=== PATIENT | male | born 1990 | race Caucasian/White ===

== ENCOUNTER 2022-12-27 20:09 | Emergency (ER) | payer MEDICAID, SELFPAY ==
[2022-12-27 20:25] VITALS: BP 129/79; PULSE 92; RESP 18; TEMP 36.9; O2SAT 97; BMI 39.2
--- NOTE | 2022-12-27 20:46 | CRLHL7_ITS ---
For Patients: As a result of the Century Cures Act, medical imaging exams and procedure reports are released immediately into your electronic medical record. You may view this report before your referring provider. If you have questions, please contact your health care provider. INDICATION: Stepped wrong, foot pain 4MT dorsal side, injury TECHNIQUE: Foot radiograph 3 views right COMPARISON: None FINDINGS: Bone: No acute fractures or aggressive bone lesions are identified. Two cannulated lag screws are present within the medial malleolus. Metallic plate ORIF of the distal fibula is seen. Two fractured intraosseous screws are noted in the distal tibiofibular articulation. Joint: The visualized hindfoot, midfoot, and forefoot joints are unremarkable in appearance. No significant ankle effusion is seen. Soft tissue: Unremarkable. No radiopaque foreign bodies are seen. IMPRESSION: 1. No acute osseous injuries or abnormalities are noted. Dictated by Mike Gamboa MD @ 12/27/2022 9:25:05 PM Dictated by: Mike Gamboa MD @ 12/27/2022 21:25:19 (Electronically Signed)
[2022-12-27] MEDS: IBUPROFEN 200 MG TABLET 600 MG PO (20:53)
[2022-12-27 21:42] VITALS: BP 133/82; PULSE 81; RESP 18; TEMP 36.9; O2SAT 98
--- NOTE | 2022-12-27 23:12 | ED_ITS ---
HPI - Extremity Injury (Lower) General Chief Complaint: Extremity Pain/Injury, Lower Stated Complaint: Right foot/ankle pain Time Seen by Provider: 12/27/22 20:11 Source: patient and family Mode of arrival: ambulatory History of Present Illness HPI Narrative: 32-year-old male otherwise healthy presents to the emergency department with pain in his right lateral mid/forefoot area near the base of the 4th proximal metatarsal. No trauma or injury. Pain has been present for about a week but worsened acutely today when he was playing soccer in flip-flops with his child. He says that he now cannot bear weight. He does have a prior history of a tib- fib fracture 9 years ago and underwent operative repair for this, no complications since. No history of blood clots. He has not taken any Tylenol or ibuprofen to help with his pain. He notes some slight discoloration and swelling to the foot as well. No fevers, no recent illness. No prior issues with the other foot. He typically wears work boots, no arch supports or other similar devices. No prior Ortho or Podiatry follow-up since that fracture many years ago. He states that his past medical history is benign, no major long-term health problems. Reports that his allergies are to penicillin and oxycodone. Denies prescription medications. Socially with no pertinent travel or unusual exposures. ROS is negative for other generalized, musculoskeletal, neurological or skin changes. Related Data Home Medications Medication Instructions Recorded Confirmed No Known Home Medications 12/27/22 12/27/22 Allergies Allergy/AdvReac Type Severity Reaction Status Date / Time acetaminophen [From Percocet] AdvReac Verified 12/27/22 20:29 oxycodone [From Percocet] AdvReac Verified 12/27/22 20:29 Penicillins AdvReac Verified 12/27/22 20:29 [facility] Medical History Ankle fracture ?S82.899A - Other fracture of unspecified lower leg, initial encounter for closed fracture (ICD-10) Social History Smoking Status: Current every day smoker What tobacco products do you use: cigarettes Smoking packs per day: 1 Smoking cigarettes per day: 20.0 Do you use any of these nicotine containing products: None How often do you have a drink containing alcohol: never AUDIT-C Alcohol total score: 0 Non-prescribed substance use: denies use Exam Const: Vital Signs, click to edit/add: Vital Signs - 24 hr 12/27/22 20:25 12/27/22 21:42 Temperature 98.4 F 98.4 F Pulse Rate [Left P ulse Oximeter] 92 81 Respiratory Rate 18 18 Blood Pressure [Le ft Upper Arm] 129/79 133/82 Pulse Oximetry 97 98 Oxygen Delivery Me thod Room Air Room Air Documenting provider has reviewed patient's vital signs: yes Common normals: no apparent distress General appearance: cooperative, comfortable and well kempt Other: Moderate insight HENMT: Common normals: normocephalic Head and scalp: normocephalic Mouth : oral and palatal mucosa normal Eye: General eye: normal appearance of both eyes Resp: Common normals: normal respiratory effort Effort & inspection: able to speak in complete sentences Cardio: Common normals: regular rate, regular rhythm and peripheral pulses 2+ throughout Rate: regular rate Rhythm: regular rhythm Peripheral pulses: pulses 2+ throughout Other: Normal DP and PT pulses bilaterally. Normal capillary refill, warmth of all parts of foot and toes. Extremity: Other: Normal flexion and extension of right ankle. He has limited eversion and surgical scars consistent with fixation. Pain is worsened by eversion. Inversion is somewhat limited but nonpainful. Normal range of motion in knee been in all the toes with no tenderness. The nails appear normal. There is minimal if any discoloration with a slight purple hue and minimal swelling around the cuboid area of the foot on the dorsal aspect of the right foot only. Psych: Appearance: well kempt Activity/motor behavior: appropriate eye contact Insight: fair Judgement: fair Skin: Common normals: no rashes or lesions noted General skin exam: no rashes or lesions noted Course Vital Signs Vital signs: Initial Vital Signs Temperature 98.4 F 12/27/22 20:25 Temperature Source Temporal Artery Scan 12/27/22 20:25 Pulse Rate 92 12/27/22 20:25 Respiratory Rate 18 12/27/22 20:25 Blood Pressure 129/79 12/27/22 20:25 Blood Pressure Mean 95 12/27/22 20:25 Blood Pressure Position Sitting 12/27/22 20:25 Pulse Oximetry 97 12/27/22 20:25 Oxygen Delivery Method Room Air 12/27/22 20:25 Vital Signs Temperature 98.4 F 12/27/22 20:25 Pulse Rate 92 12/27/22 20:25 Respiratory Rate 18 12/27/22 20:25 Blood Pressure 129/79 12/27/22 20:25 Pulse Oximetry 97 12/27/22 20:25 Oxygen Delivery Method Room Air 12/27/22 20:25 Temperature 98.4 F 12/27/22 21:42 Pulse Rate 81 12/27/22 21:42 Respiratory Rate 18 12/27/22 21:42 Blood Pressure 133/82 12/27/22 21:42 Pulse Oximetry 98 12/27/22 21:42 Oxygen Delivery Method Room Air 12/27/22 21:42 MDM - Extremity Injury (Lower) MDM Narrative Medical decision making narrative: X-ray recommended and performed. Ibuprofen given for pain control. Update: X-ray findings reviewed with family, all reassuring. Did let him know that x-ray would not reliably find a stress fracture. Symptoms are more likely consistent with cuboid syndrome. Patient is significantly overweight. Counseled on Tylenol and ibuprofen, he will wear supportive hard bottomed shoes and consider arch supports for his work boots. Crutches given until he feels like he can not bear weight. He will continue conservative management for the next 2-4 weeks. If symptoms are not improving after that time, he will make a follow-up appointment with his primary care provider to consider MRI or podiatry referral. Alarm symptoms reviewed and handout given. Imaging Data Foot x-ray: Attestation: I have reviewed the pertinent imaging results. My impression: Normal Radiologist's impression: IMPRESSION: 1. No acute osseous injuries or abnormalities are noted. Discharge Plan Discharge Clinical Impression: Cuboid syndrome of right foot Patient Disposition: Home w/ Parent or Adult Instructions: Arthralgia (ED) Additional Instructions: As we discussed, there are no signs of fracture on your x-ray. Your pain is most likely consistent with a common condition called cuboid syndrome of the foot. I do suspect that your prior ankle surgeries put you at a slightly higher risk of this. It is mainly in obesity related condition and is very common. It will flare up from time to time but ultimately will wax and wane. Wearing sturdy arch supports, supportive footwear helps markedly. Use Tylenol 1000 mg every 6 hours and or ibuprofen 600 mg every 6 hours for pain. Ice as needed. Your given crutches to help offload some of the pain. It is okay to return to work and all typical duties. If your symptoms are still very bothersome in 4 weeks, make a follow-up appointment with your primary care provider to discuss a Podiatry referral, physical therapy and or other interventions. Rarely, stress fractures may not be seen on x-ray and may need an MRI to diagnose if you are not improving. Activity Level: Activity as Tolerated Discharge Diet: Regular Prescriptions: No Action No Known Home Medications Follow Up/Referrals: Provider,Not a Local [Primary Care Provider] - Stand Alone Forms: [employer] Info Instructions
== END 2022-12-27 21:43 | disposition home or self-care (01) ==
PROVIDERS: Emergency Provider Family Medicine
DX: S92.214A Nondisplaced fracture of cuboid bone of right foot, initial encounter for closed fracture (principal); Y93.66 Activity, soccer
CPT/HCPCS: 73630; 99283; A9270

== ENCOUNTER 2024-01-26 16:17 | Emergency (ER) | payer MEDICAID, SELFPAY ==
[2024-01-26 16:19] VITALS: BP 124/80; PULSE 88; RESP 16; TEMP 37.3; O2SAT 96; BMI 38.4
--- NOTE | 2024-01-26 16:37 | CT_ITS ---
Patient: ALOK ZHONG Facility:?[facility] Patient ID:?[id number] Site Patient ID:?[id number] Site :?[id number] Study:?CT-Abdomen/Pelvis w/o-01/26/2024 4:49:37 PM Ordering Physician:Cordell Rhodes Final Report: INDICATION: Right flank pain. COMPARISON: None available. TECHNIQUE: CT of the abdomen and pelvis without intravenous contrast. Please note that all CT scans at this facility use dose modulation, iterative reconstruction, and/or weight-based dosing when appropriate to reduce radiation dose to as low as reasonably achievable. FINDINGS: The study is performed without intravenous contrast. This limits the sensitivity of the exam for the detection bowel pathology, focal lesions of the abdominopelvic viscera and vascular pathology including significant vascular stenosis, occlusion and dissection. ABDOMEN Liver: Diffuse hepatic steatosis. No intrahepatic biliary ductal dilatation. Gallbladder: Cholelithiasis. Normal common duct caliber. No pericholecystic inflammatory changes. Pancreas: Normal pancreatic attenuation. No focal lesion. Normal duct caliber. No peripancreatic inflammatory changes. Spleen: Normal splenic attenuation. No suspicious focal lesion. Adrenal Glands: Symmetrical adrenal glands. No focal lesion of significance. Kidneys: Normal bilateral renal attenuation. No suspicious focal lesion. 10 mm stone in the right renal pelvis. No obstructing nephrolith or dilatation of the upper urinary tracts. Gastrointestinal tract: Normal caliber, attenuation and wall thickness of the gastrointestinal tract. No inflammatory changes. Normal mesentery. Normal appendix. Vascular: Normal outer wall to outer wall abdominal aortic caliber. Patency and luminal caliber of the abdominopelvic arterial and venous vasculature cannot be assessed on this noncontrast study. Additional findings: No incidental adenopathy. No significant ascites, free fluid or pneumoperitoneum. PELVIS No bladder lesion is identified. No significant incidental findings related to the prostate and seminal vesicles. No abnormal free fluid. No incidental adenopathy. SKELETON AND BODY WALL No acute or suspicious incidental findings. LOWER THORAX Partially included lower thoracic wall, lungs, pleural spaces and mediastinum are otherwise without significant incidental findings. IMPRESSION: 1. 10 mm nonobstructing stone in the right renal pelvis. 2. Cholelithiasis without findings to indicate acute cholecystitis. 3. Diffuse hepatic steatosis. The study is performed without intravenous contrast. This limits the sensitivity of the exam for the detection bowel pathology, focal lesions of the abdominopelvic viscera and vascular pathology including significant vascular stenosis, occlusion and dissection. Please note that all CT scans at this facility use dose modulation, iterative reconstruction, and/or weight-based dosing when appropriate to reduce radiation dose to as low as reasonably achievable. Dictated by David Whitehead MD @ 01/26/2024 5:15:53 PM Signed by:?David Whitehead MD @01/26/2024 5:15:53 PM (Electronic Signature)
--- NOTE | 2024-01-26 16:40 | ED.GENADULT ---
HPI - General Adult General Chief complaint: Abdominal Pain Stated complaint: Lower abdominal/back pain, dark urine Time Seen by Provider: 01/26/24 16:25 History of Present Illness HPI narrative: Patient is a 34-year-old male who has had kidney stones in the past, 3 times over the last couple months he has had darkish urine and some flank pain that then resolved. Starting yesterday to today he had brown urine dark urine and right-sided flank pain radiating to his right testicle. He has had no fever, he has had no chills, the patient has had no chest pain or breathing problem. Patient also reports a cyst-like structure under scrotal area in the perineum that is ruptured and had a little bit of bleeding in purulence now it seems less large. Denies specifically flank pain although has had some discomfort in his back this seems to radiate around his right testicle as mention. No testicular pain to palpation Related Data Allergies Allergy/AdvReac Type Severity Reaction Status Date / Time acetaminophen [From Percocet] AdvReac Verified 12/27/22 20:29 oxycodone [From Percocet] AdvReac Verified 12/27/22 20:29 Penicillins AdvReac Verified 12/27/22 20:29 Review of Systems Status of ROS: Reports: 6 or more systems reviewed and unremarkable except as noted in History and below [facility] Medical History Ankle fracture ?S82.899A - Other fracture of unspecified lower leg, initial encounter for closed fracture (ICD-10) Social History Smoking Status: Current every day smoker What tobacco products do you use: cigarettes Smoking packs per day: 1 Smoking cigarettes per day: 20.0 Do you use any of these nicotine containing products: None How often do you have a drink containing alcohol: never AUDIT-C Alcohol total score: 0 Non-prescribed substance use: denies use service: No Exam Narrative: Exam Narrative: Objective: Patient has temp of 99.1?, O2 sat is excellent 96% Patient has got elevated BMI HEENT is unremarkable Pulse regular Abdomen obese benign nontender Mild CVA tenderness, mild right lower quadrant tenderness, but no rebound or peritonitis He has got a small open wound under his left side of his scrotum and perineum that looks like it is open and there is no fluctuance it appears to have drained M there is a little bit a redness around that open lesion which is about 3 mm long. Extremities normal Neurologic nonfocal Const: Vital Signs, click to edit/add: Vital Signs - 24 hr 01/26/24 16:19 01/26/24 17:22 Temperature 99.1 F Pulse Rate [Pulse Oximeter] 88 Respiratory Rate 16 Blood Pressure [Ri ght Upper Arm] 124/80 Pulse Oximetry 96 96 Oxygen Delivery Me thod Room Air Course Vital Signs Vital signs: Initial Vital Signs Temperature 99.1 F 01/26/24 16:19 Temperature Source Temporal Artery Scan 01/26/24 16:19 Pulse Rate 88 01/26/24 16:19 Respiratory Rate 16 01/26/24 16:19 Blood Pressure 124/80 01/26/24 16:19 Blood Pressure Mean 94 01/26/24 16:19 Blood Pressure Position Sitting 01/26/24 16:19 Pulse Oximetry 96 01/26/24 16:19 Oxygen Delivery Method Room Air 01/26/24 16:19 Vital Signs Temperature 99.1 F 01/26/24 16:19 Pulse Rate 88 01/26/24 16:19 Respiratory Rate 16 01/26/24 16:19 Blood Pressure 124/80 01/26/24 16:19 Pulse Oximetry 96 01/26/24 16:19 Oxygen Delivery Method Room Air 01/26/24 16:19 Temperature 99.1 F 01/26/24 16:19 Pulse Rate 88 01/26/24 16:19 Respiratory Rate 16 01/26/24 16:19 Blood Pressure 124/80 01/26/24 16:19 Pulse Oximetry 96 01/26/24 17:22 Oxygen Delivery Method Room Air 01/26/24 16:19 Medications Administered Medications: Discontinued Medications Generic Name Dose Route Start Last Admin Trade Name Freq PRN Reason Stop Dose Admin Sodium Chloride 1,000 mls @ 6,000 mls/hr 01/26/24 16:45 01/26/24 18:00 0.9 % Sodium Chloride 1000 Ml IV 01/26/24 16:54 Infused .Q10M GLADIS Infusion Ketorolac Tromethamine 30 mg 01/26/24 16:36 01/26/24 17:17 Ketorolac 30 Mg/Ml Inj IVP 01/26/24 16:37 30 mg ONCE ONE Administration Trimethoprim/Sulfamethoxazole 1 tab 01/26/24 16:36 01/26/24 17:09 Sulfamethoxazole-Tmp Ds 800mg/160mg Tablet PO 01/26/24 16:37 1 tab ONCE ONE Administration Medical Decision Making MDM Narrative Medical decision making narrative: 34-year-old male with history kidney stones with right flank pain radiating to his right testicle and some darkish urine. Likely urolithiasis. And patient will get a CT scan IV fluid IV Toradol, will start some Septra DS for him for his scrotal cellulitic change an abscess. Will check his electrolytes and labs. Disposition pending findings on CT and laboratory still results and clinical status. Addendum 5:[address] scan shows a 10 mm nonobstructing stone in the right renal pelvis patient also has cholelithiasis without findings to indicate acute cholecystitis. He does not have right upper quadrant pain. He does describe some right-sided flank pain that radiates around to his groin consistent with a kidney stone. I think he intermittently gets a ball valve could type process going on with this large kidney stone. Will cover with antibiotics Septra DS 1 p.o. b.i.d. times 10 days, needs primary care follow-up in the next couple of days for reassessment and urologic referral. Also might need a general surgery referral regarding his cholelithiasis as needed. Patient will get Toradol and Septra DS for medications for home, I will write him a note for off work for 2 days, and he can recheck with the ER as needed. Lab Data Labs: Lab Results 01/26/24 01/26/24 Range/Units 17:00 17:40 WBC 10.20 (4.50-11.00) K/uL RBC 5.07 (4.30-5.90) m/uL Hgb 15.9 (13.5-17.5) gm/dL Hct 47.0 (37.0-53.0) % MCV 93 (80-100) fL MCH 31 (26-34) pg MCHC 34 (32-36) gm/dL RDW Coeff of [place] 12.1 (11.5-15.5) % Plt Count 278 (140-440) K/uL Neut % (Auto) 53.0 (42.0-72.0) % Lymph % (Auto) 37.0 (20-44) % [place] % (Auto) 5.7 (0.0-11.0) % Eos % (Auto) 3.3 (0.0-7.0) % Baso % (Auto) 0.8 (0.0-3.0) % Neut # (Auto) 5.41 (1.7-7.0) K/uL Lymph # (Auto) 3.77 H (0.90-2.90) K/uL [place] # (Auto) 0.60 (0.00-0.90) K/UL Eos # (Auto) 0.34 (0.00-0.50) K/uL Baso # (Auto) 0.08 (0.00-0.30) K/uL Abs Immat Gran (auto) 0.02 (0.00-0.30) K/uL Imm/Tot Granulo (auto) 0.2 % Sodium 139 (135-149) mmol/L Potassium 3.6 (3.6-5.1) mmol/L Chloride 109 (96-114) mmol/L Carbon Dioxide 26 (20-32) mmol/L Anion Gap 4 L (7-15) mEq/L BUN 14 (5-24) mg/dL Creatinine 1.1 (0.5-1.5) mg/dL Estimated Creat Clear 87.63 Estimated GFR 90 ml/min Glucose 112 (60-115) mg/dL Calcium 9.1 (8.4-10.6) mg/dL Total Bilirubin 0.8 (0.1-1.5) mg/dL Direct Bilirubin 0.1 (0.0-0.5) mg/dL AST 38 H (12-35) U/L ALT 51 H (4-50) U/L Alkaline Phosphatase 76 (40-150) U/L C-Reactive Protein 1.6 H (0.5-1.0) mg/dL Total Protein 7.9 (6.0-8.3) g/dL Albumin 4.5 (3.3-5.0) g/dL Amylase 68 (18-89) U/L Urine Color [place] A (Yellow) Urine Appearance Cloudy A (Clear) Urine pH 5.5 (5.0-8.5) Ur Specific [place] 1.025 (1.000-1.030) Urine Protein 3+ A (Negative) Urine Glucose (UA) Negative (Negative) Urine Ketones Trace A (Negative) Urine Blood 3+ A (Negative) Urine Nitrite Negative (Negative) Urine Bilirubin 1+ A (Negative) Urine Urobilinogen 2.0 A (0.2-1.0) Ur Leukocyte Esterase Negative (Negative) Urine RBC >100 A (0-2) Urine WBC 0-2 (0-5) Ur Squamous Epith Cells Few (None-Few) Amorphous Sediment Few A (None) Urine Bacteria None (None) Urine Yeast Moderate A (None) Discharge Plan Discharge Clinical Impression: Acute right flank pain, Skin infection, Kidney stone on right side, Cholelithiasis Patient Disposition: Home w/ Parent or Adult Condition: Improved Additional Instructions: Off work for 2 days no written, Septra and Toradol as disc prescribed. Needs primary care follow-up at our [facility] in the next few days. Will need urologic referral from primary care. Return as needed Your follow-up appointment is made for 01/[address] Noonan at 0945 am at the [facility]. Activity Level: Light activity Discharge Diet: Regular Follow Up/Referrals: Provider,Not a Local [Primary Care Provider] - Stand Alone Forms: [employer] Info Instructions
[2024-01-26 17:14] LABS: Basophils Absolute Auto 0.08 K/uL (0.00-0.30); Basophils Percent Auto 0.8 % (0.0-3.0); Eosinophils Absolute Auto 0.34 K/uL (0.00-0.50); Eosinophils Percent Auto 3.3 % (0.0-7.0); Hemoglobin* 15.9 gm/dL (13.5-17.5); Immature Granulocytes Abs Auto 0.02 K/uL (0.00-0.30); Immature Granulocytes Pct Auto 0.2 %; Lymphocytes Absolute Auto 3.77 K/uL (0.90-2.90); Mean Corpuscular HGB Conc 34 gm/dL (32-36); Mean Corpuscular Hemoglobin 31 pg (26-34); Mean Corpuscular Volume 93 fL (80-100); Monocytes Percent Auto 5.7 % (0.0-11.0); Neutrophils Absolute Auto 5.41 K/uL (1.7-7.0); Platelet Count* 278 K/uL (140-440); RDW Coefficient of Variation % 12.1 % (11.5-15.5); Red Blood Count 5.07 m/uL (4.30-5.90)
[2024-01-26] MEDS: KETOROLAC 30 MG/ML inj IVP (17:17)
[2024-01-26] MEDS: 0.9 % SODIUM CHLORIDE 1000 ml 1,000 ML 6000 ML IV (17:17)
[2024-01-26 17:19] LABS: Slide Review Reflex No
[2024-01-26 17:20] LABS: Albumin* 4.5 g/dL (3.3-5.0); Chloride* 109 mmol/L (96-114)
[2024-01-26 17:21] LABS: Potassium* 3.6 mmol/L (3.6-5.1); Sodium* 139 mmol/L (135-149)
[2024-01-26 17:22] VITALS: O2SAT 96
[2024-01-26 17:23] LABS: Alkaline Phosphatase* 76 U/L (40-150); Amylase* 68 U/L (18-89); Anion Gap 4 mEq/L (7-15); Aspartate Amino Transferase* 38 U/L (12-35); Bilirubin Direct* 0.1 mg/dL (0.0-0.5); Bilirubin Total* 0.8 mg/dL (0.1-1.5); Blood Urea Nitrogen* 14 mg/dL (5-24); Carbon Dioxide* 26 mmol/L (20-32); Creatinine* 1.1 mg/dL (0.5-1.5); Est. Creatinine Clearance* 87.63; Estimated Glomerular Filt Rate 90 ml/min; Total Protein* 7.9 g/dL (6.0-8.3)
[2024-01-26 17:24] LABS: Alanine Aminotransferase* 51 U/L (4-50); Calcium* 9.1 mg/dL (8.4-10.6); Glucose* 112 mg/dL (60-115)
[2024-01-26 17:26] LABS: C Reactive Protein* 1.6 mg/dL (0.5-1.0)
[2024-01-26 17:54] LABS: Appearance Urine Cloudy (Clear); Bilirubin Urine 1+ (Negative); Blood Urine 3+ (Negative); Color Urine Amber (Yellow); Glucose Urine Negative (Negative); Ketones Urine Trace (Negative); Leukocyte Esterase Urine Negative (Negative); Nitrite Urine Negative (Negative); Protein Urine 3+ (Negative); Specific Gravity Urine 1.025 (1.000-1.030); pH Urine 5.5 (5.0-8.5)
[2024-01-26 18:16] LABS: Amorphous Sediment Urine Few; RBC Urine >100 (0-2); Squamous Epithelial Cell Urine Few (None-Few); WBC Urine 0-2 (0-5)
== END 2024-01-26 18:02 | disposition home or self-care (01) ==
LOC: ED 17:06
PROVIDERS: Emergency Provider Family Medicine
DX: R10.9 Unspecified abdominal pain (principal); N20.0 Calculus of kidney; K80.20 Calculus of gallbladder without cholecystitis without obstruction; L08.9 Local infection of the skin and subcutaneous tissue, unspecified
CPT/HCPCS: 36415; 74176; 80048; 80076; 81001; 82150; 85025; 86140; 87086; 94761; 96374; 99284; A9270; J1885; J7030

== ENCOUNTER 2024-02-16 20:38 | Emergency (ER) | payer MEDICAID, SELFPAY ==
--- NOTE | 2024-02-16 20:41 | ED_ITS ---
HPI - General Adult General Time Seen by Provider: 20:41 Date Seen: 02/16/24 Chief complaint: Flank Pain Stated complaint: Kidney stone pain, vomiting, dry heaves Time Seen by Provider: 02/16/24 20:41 Source: patient, RN notes reviewed and old records reviewed Mode of arrival: ambulatory Limitations: no limitations History of Present Illness HPI narrative: Patient history of kidney stones presents with right flank pain, nausea vomiting this started earlier today. Pain wraps around to the low groin. Patient notes hematuria 4 days ago but none since. No dysuria. No fevers. Took Tylenol at home, but vomited. Does not have any nausea medicine at home. Has an appointment with Urology March 08. Related Data Home Medications ?Medication ?Instructions ?Recorded ?Confirmed sulfamethoxazole 800 1 tab PO BID 02/01/24 02/01/24 mg-trimethoprim 160 mg tablet Previous Rx's ?Medication ?Instructions ?Recorded hydromorphone 2 mg tablet 2 mg PO Q4H PRN pain #7 tabs 02/16/24 (Dilaudid) Allergies Allergy/AdvReac Type Severity Reaction Status Date / Time acetaminophen [From Percocet] AdvReac Verified 02/01/24 09:39 oxycodone [From Percocet] AdvReac Verified 02/01/24 09:39 Penicillins AdvReac Verified 02/01/24 09:39 [facility] Medical History (Updated 02/16/24 @ 22:16 by Dale Beauchamp MD) Ankle fracture ?S82.899A - Other fracture of unspecified lower leg, initial encounter for closed fracture (ICD-10) Surgical History (Updated 02/01/24 @ 11:07 by Chavo Noonan MD) History of surgery on lower extremity ?Z98.890 - Other specified postprocedural states (ICD-10) Social History (Updated 02/01/24 @ 10:30 by Elin Sams~[facility], [facility]) What is your current living situation?: I presently have a place to live Problems where you live: no known problems In the past 12 months, utilities in danger of being shut off: no In past 12 months, lack of transportation kept you from medical appts, meetings, work, or getting things needed for daily living: no In the past 12 mos, have been you worried that your food would run out before you had money to buy more?: never true In the past 12 mos, the food you bought just didn't last and you didn't have money to buy more?: never true Smoking Status: Current every day smoker What tobacco products do you use: cigarettes Smoking packs per day: 1 Smoking cigarettes per day: 20.0 Do you use any of these nicotine containing products: None How often do you have a drink containing alcohol: never AUDIT-C Alcohol total score: 0 Non-prescribed substance use: denies use How often does anyone, including family, friends and others, physically hurt you : never How often does anyone, including family, friends and others, insult or talk down to you: never How often does anyone, including family, friends and others, threaten you with harm: never How often does anyone, including family, friends and others, scream or curse at you: never Little interest or pleasure in doing things: nearly every day Feeling down, depressed, or hopeless: several days service: No Exam Narrative: Exam Narrative: General: Well-developed and well-nourished, appears uncomfortable Head: Atraumatic and normocephalic Eyes: Pupils are equal reactive, extraocular motions intact, conjunctiva clear ENT: External nose and ears are normal, posterior pharynx without erythema or exudate Neck: No midline cervical tenderness, full spontaneous range of motion the neck, trachea midline, no adenopathy Heart: Regular rate and rhythm no murmurs or thrills Lungs: Clear to auscultation bilaterally without wheezes or crackles Abdomen: Soft, right-sided abdominal tenderness,, nondistended with active bowel sounds Musculoskeletal: No tenderness, deformity, or edema Neurologic: Awake, alert, and oriented x3, no gross focal neurologic deficits, cranial nerves intact as tested Psych: Mood and affect are appropriate Skin: No rashes Const: Vital Signs, click to edit/add: Vital Signs - 24 hr 02/16/24 20:44 02/16/24 22:05 02/16/24 22:42 Temperature 97.8 F Pulse Rate [Pulse Oximeter] 58 L 55 L 58 L Respiratory Rate 20 Blood Pressure [Ri ght Upper Arm] 126/59 L Pulse Oximetry 95 91 94 Oxygen Delivery Me thod Room Air Room Air Room Air Course Course ED Course: Patient seen and examined, reviewed prior emergency department visit from January 25 1 patient was seen with right flank pain, CT scan demonstrated 10 mm stone in the right renal pelvis. Also reviewed follow-up note from primary care on January 31 at which time urology referral was made. Patient presents today with right flank pain radiating into the right groin consistent with prior kidney stones, hematuria several days ago but nothing today. Also nausea vomiting. On exam h ere, vital is stable, appears uncomfortable. Labs ordered along with CT scan and consider calling Urology to arrange sooner follow-up. Reevaluation(s) Time of Reevaluation #1: 21:20 Reevaluation #1: CT abdomen and pelvis independently interpreted by me demonstrates that the 10 mm stone from the right kidney is now in the proximal ureter with mild hydronephrosis Time of Reevaluation #2: 21:46 Reevaluation #2: Patient recheck, minimal improvement in pain after Toradol. Dilaudid IV is ordered. Time of Reevaluation #3: 22:12 Reevaluation #3: Patient rechecked, pain improved after Dilaudid. Will discuss with urology for possible sooner appointment. Additional Reevaluation(s): 22:[address] Ackerman, [facility]. The patient is able to be discharged, clinic will call him tomorrow to schedule a sooner appointment. If unable to control pain, patient would preferably be transferred up to [place] for further evaluation and treatment. 2316 patient is feeling better, pain is tolerable. Due to prior allergy of facial swelling with oxycodone and need for baseline Tylenol, patient will be discharged with limited number of Dilaudid and urology clinic to call him in the morning Vital Signs Vital signs: Initial Vital Signs Temperature 97.8 F 02/16/24 20:44 Temperature Source Temporal Artery Scan 02/16/24 20:44 Pulse Rate 58 L 02/16/24 20:44 Respiratory Rate 20 02/16/24 20:44 Blood Pressure 126/59 L 02/16/24 20:44 Blood Pressure Mean 81 02/16/24 20:44 Blood Pressure Position Sitting 02/16/24 20:44 Pulse Oximetry 95 02/16/24 20:44 Oxygen Delivery Method Room Air 02/16/24 20:44 Vital Signs Temperature 97.8 F 02/16/24 20:44 Pulse Rate 58 L 02/16/24 20:44 Respiratory Rate 20 02/16/24 20:44 Blood Pressure 126/59 L 02/16/24 20:44 Pulse Oximetry 95 02/16/24 20:44 Oxygen Delivery Method Room Air 02/16/24 20:44 Temperature 97.8 F 02/16/24 20:44 Pulse Rate 58 L 02/16/24 22:42 Respiratory Rate 20 02/16/24 20:44 Blood Pressure 126/59 L 02/16/24 20:44 Pulse Oximetry 94 02/16/24 22:42 Oxygen Delivery Method Room Air 02/16/24 22:42 Medications Administered Medications: Generic Name Dose Route Start Last Admin Trade Name Charla PRN Reason Stop Dose Admin Hydromorphone HCl 0.5 mg 02/16/24 21:46 02/16/24 21:49 Hydromorphone 0.5 Mg/0.5 Ml Inj IVP 02/16/24 21:47 0.5 mg ONCE ONE Administration Hydromorphone HCl 0.5 mg 02/16/24 22:26 02/16/24 22:37 Hydromorphone 0.5 Mg/0.5 Ml Inj IVP 02/16/24 22:27 0.5 mg ONCE ONE Administration Sodium Chloride 500 mls @ 500 mls/hr 02/16/24 22:35 02/16/24 22:35 0.9 % Sodium Chloride 500 Ml IV 02/16/24 23:34 500 mls/hr .Q1H ONE Administration Discontinued Medications Generic Name Dose Route Start Last Admin Trade Name Charla PRN Reason Stop Dose Admin Ketorolac Tromethamine 15 mg 02/16/24 20:54 02/16/24 20:56 Ketorolac 15 Mg/Ml Inj IVP 02/16/24 20:55 15 mg ONCE ONE Administration Ondansetron HCl 4 mg 02/16/24 20:54 02/16/24 20:56 Ondansetron 2 Mg/Ml Inj IVP 02/16/24 20:55 4 mg ONCE ONE Administration Medical Decision Making Lab Data Labs: Lab Results 02/16/24 Range/Units 20:54 WBC 12.92 H (4.50-11.00) K/uL RBC 5.30 (4.30-5.90) m/uL Hgb 16.8 (13.5-17.5) gm/dL Hct 48.6 (37.0-53.0) % MCV 92 (80-100) fL MCH 32 (26-34) pg MCHC 35 (32-36) gm/dL RDW Coeff of [place] 12.2 (11.5-15.5) % Plt Count 326 (140-440) K/uL Neut % (Auto) 63.1 (42.0-72.0) % Lymph % (Auto) 26.8 (20-44) % [place] % (Auto) 6.5 (0.0-11.0) % Eos % (Auto) 2.7 (0.0-7.0) % Baso % (Auto) 0.7 (0.0-3.0) % Neut # (Auto) 8.20 H (1.7-7.0) K/uL Lymph # (Auto) 3.50 H (0.90-2.90) K/uL [place] # (Auto) 0.80 (0.00-0.90) K/UL Eos # (Auto) 0.30 (0.00-0.50) K/uL Baso # (Auto) 0.10 (0.00-0.30) K/uL Abs Immat Gran (auto) 0.00 (0.00-0.30) K/uL Imm/Tot Granulo (auto) 0.2 % Sodium 141 (135-149) mmol/L Potassium 4.3 (3.6-5.1) mmol/L Chloride 110 (96-114) mmol/L Carbon Dioxide 22 (20-32) mmol/L Anion Gap 9 (7-15) mEq/L BUN 13 (5-24) mg/dL Creatinine 1.3 (0.5-1.5) mg/dL Estimated Creat Clear 71.57 Estimated GFR 73 ml/min Glucose 104 (60-115) mg/dL Calcium 9.5 (8.4-10.6) mg/dL Urine Color Yellow (Yellow) Urine Appearance Cloudy A (Clear) Urine pH 5.5 (5.0-8.5) Ur Specific [place] >= 1.030 (1.000-1.030) Urine Protein 2+ A (Negative) Urine Glucose (UA) Negative (Negative) Urine Ketones Negative (Negative) Urine Blood 3+ A (Negative) Urine Nitrite Negative (Negative) Urine Bilirubin 1+ A (Negative) Urine Urobilinogen 0.2 (0.2-1.0) Ur Leukocyte Esterase Negative (Negative) Urine RBC 50-100 A (0-2) Urine WBC 2-5 (0-5) Ur Squamous Epith Cells None (None-Few) Amorphous Sediment Moderate A (None) Other Sediment Few A (None) Urine Bacteria Many A (None) Discharge Plan Discharge Clinical Impression: Calculus of proximal right ureter Condition: Stable Instructions: Ureteral Stones (ED) Additional Instructions: Tylenol 1000mg every 6 hours alternating with Toradol every 6 hours scheduled for baseline pain maintenance Zofran as needed for nausea and vomiting [facility] will call you in the morning to follow-up. If you do not hear from them by 10:00 a.m., call and let them know that Dr. Ackerman was consulted overnight. Take Dilaudid 2 mg tablets every 4 hours as needed for pain Drink to thirst Activity Level: Activity as Tolerated Discharge Diet: Regular Prescriptions: New hydromorphone [Dilaudid] 2 mg tablet 2 mg PO Q4H PRN (Reason: pain) Qty: 7 0RF No Action sulfamethoxazole-trimethoprim 800-160 mg tablet 1 tab PO BID Follow Up/Referrals: Chavo Noonan MD [Primary Care Provider] -
[2024-02-16 20:44] VITALS: BP 126/59; PULSE 58; RESP 20; TEMP 36.6; O2SAT 95; BMI 37.1
--- NOTE | 2024-02-16 20:54 | CRLHL7_ITS ---
For Patients: As a result of the Century Cures Act, medical imaging exams and procedure reports are released immediately into your electronic medical record. You may view this report before your referring provider. If you have questions, please contact your health care provider. INDICATION: Right lower quadrant abdominal pelvic pain, history of kidney stones TECHNIQUE: CT Abdomen and pelvis without i.v. contrast. Coronal and sagittal reformats were obtained. COMPARISON: 01/26/2024 FINDINGS: Lower chest: Unremarkable. Liver: Moderate diffuse fatty infiltration of the liver is noted. Spleen: Unremarkable. Pancreas: Unremarkable. Gallbladder: Several tiny calcified gallstones are noted. Kidney: There is a 7 mm stone at the right ureteropelvic junction (UPJ) causing mild right renal pelvicaliectasis. There is a renal cystic lesion in the left upper pole measuring 2.5 x 2.3 cm and 7 HU in density. In accordance with ACR Guidelines, no additional imaging is recommended. Adrenal: Unremarkable. Bowel: Unremarkable. The appendix is normal in appearance and size. Vascular: Unremarkable. Lymph: Unremarkable. Peritoneum: Unremarkable. No pneumoperitoneum is seen. No significant ascites is noted. Pelvis: Unremarkable. Soft tissue: Unremarkable. Bone: Unremarkable for age. IMPRESSION: 1. There is a 7 mm stone at the right ureteropelvic junction (UPJ) causing mild right renal pelvicaliectasis. Dictated by iMke Gamboa MD @ 02/16/2024 9:28:41 PM Please note that all CT scans at this facility use dose modulation, iterative reconstruction, and/or weight-based dosing when appropriate to reduce radiation dose to as low as reasonably achievable. Dictated by: Mike Gamboa MD @ 02/16/2024 21:28:46 (Electronically Signed)
[2024-02-16] MEDS: KETOROLAC 15 MG/ML inj IVP (20:56)
[2024-02-16] MEDS: ONDANSETRON 2 MG/ML inj 4 MG IVP (20:56)
[2024-02-16 21:13] LABS: Basophils Percent Auto 0.7 % (0.0-3.0); Eosinophils Percent Auto 2.7 % (0.0-7.0); Hematocrit 48.6 % (37.0-53.0); Hemoglobin* 16.8 gm/dL (13.5-17.5); Immature Granulocytes Pct Auto 0.2 %; Lymphocytes Percent Auto 26.8 % (20-44); Mean Corpuscular HGB Conc 35 gm/dL (32-36); Mean Corpuscular Hemoglobin 32 pg (26-34); Mean Corpuscular Volume 92 fL (80-100); Monocytes Percent Auto 6.5 % (0.0-11.0); Neutrophils Percent Auto 63.1 % (42.0-72.0); Platelet Count* 326 K/uL (140-440); RDW Coefficient of Variation % 12.2 % (11.5-15.5); White Blood Count* 12.92 K/uL (4.50-11.00)
[2024-02-16 21:14] LABS: Appearance Urine Cloudy (Clear); Bilirubin Urine 1+ (Negative); Blood Urine 3+ (Negative); Color Urine Yellow (Yellow); Glucose Urine Negative (Negative); Ketones Urine Negative (Negative); Leukocyte Esterase Urine Negative (Negative); Nitrite Urine Negative (Negative); Protein Urine 2+ (Negative); Specific Gravity Urine >= 1.030 (1.000-1.030); Urobilinogen Urine 0.2 (0.2-1.0); pH Urine 5.5 (5.0-8.5)
[2024-02-16 21:31] LABS: Amorphous Sediment Urine Moderate; Bacteria Urine Many; RBC Urine 50-100 (0-2); Slide Review Reflex No
[2024-02-16 21:32] LABS: Other Sediment Urine Few
[2024-02-16 21:34] LABS: Chloride* 110 mmol/L (96-114); Potassium* 4.3 mmol/L (3.6-5.1); Sodium* 141 mmol/L (135-149)
[2024-02-16 21:36] LABS: Creatinine* 1.3 mg/dL (0.5-1.5); Est. Creatinine Clearance* 71.57; Estimated Glomerular Filt Rate 73 ml/min
[2024-02-16 21:37] LABS: Anion Gap 9 mEq/L (7-15); Blood Urea Nitrogen* 13 mg/dL (5-24); Calcium* 9.5 mg/dL (8.4-10.6); Carbon Dioxide* 22 mmol/L (20-32); Glucose* 104 mg/dL (60-115)
[2024-02-16] MEDS: HYDROmorphone 0.5 mg/0.5 ml inj IVP ×2 (21:49→22:37)
[2024-02-16 22:05] VITALS: PULSE 55; O2SAT 91
[2024-02-16 22:30] VITALS: O2SAT 97
[2024-02-16] MEDS: 0.9 % SODIUM CHLORIDE 500 ML 500 ML IV (22:35)
[2024-02-16 22:42] VITALS: PULSE 58; O2SAT 94
[2024-02-16] MEDS: HYDROmorphone 2 MG TABLET PO ×3 (23:37→23:39)
== END 2024-02-16 23:40 | disposition home or self-care (01) ==
PROVIDERS: Emergency Provider Family Medicine; PCP Family Medicine
DX: N20.1 Calculus of ureter (principal)
CPT/HCPCS: 36415; 74176; 80048; 81001; 85025; 87086; 94761; 96374; 96375; 96376; 99284; A9270; J1170; J1885; J2405; J7030

== ENCOUNTER 2024-02-20 22:09 | Emergency (ER) | payer MEDICAID, SELFPAY ==
[2024-02-20 22:26] VITALS: BP 152/95; PULSE 65; RESP 18; TEMP 36.4; O2SAT 95
--- NOTE | 2024-02-20 22:39 | CRLHL7_ITS ---
For Patients: As a result of the Century Cures Act, medical imaging exams and procedure reports are released immediately into your electronic medical record. You may view this report before your referring provider. If you have questions, please contact your health care provider. INDICATION: Flank pain. Evaluate for kidney stone. TECHNIQUE: Multiplanar CT examination of the abdomen and pelvis was performed without the use of intravenous contrast, renal stone protocol. COMPARISON: CT abdomen pelvis 02/16/2024. FINDINGS: Limited evaluation of the soft tissue organs without the use of intravenous contrast. Lower chest: No focal consolidation. Normal heart size. No pleural effusions or pneumothorax. Dependent atelectasis. Liver: Diffuse hepatic steatosis. Gallbladder: Cholelithiasis. Biliary: Unremarkable. Pancreas: Within normal limits. Spleen: Unremarkable. Adrenal glands: Unremarkable. Renal/ureters/bladder: Stable moderate right-sided hydroureteronephrosis to the level of the proximal ureter where there is a 7 mm obstructing urinary calculus (2:79), minimally more distal in position when compared to the prior CT. The left kidney is normal in size without obstructive uropathy. Limited evaluation for renal masses without the use of intravenous contrast. The bladder is within normal limits. Pelvis: Unremarkable. Gastrointestinal: No bowel wall thickening or bowel obstruction. Normal appendix. No significant colonic diverticulosis. Mild colonic stool burden. Vasculature: No aortic aneurysm. No significant atherosclerotic calcifications. Lymph nodes: No pathologic lymphadenopathy by size criteria. Peritoneum: No free fluid or pneumoperitoneum. No drainable fluid collections. Abdominal wall/soft tissues: Unremarkable. Bones: No acute osseous abnormalities. IMPRESSION: 1. Stable moderate right-sided hydroureteronephrosis to the level of the proximal ureter where there is an obstructing 7 mm urinary calculus. 2. Diffuse hepatic steatosis. Please note that all CT scans at this facility use dose modulation, iterative reconstruction, and/or weight-based dosing when appropriate to reduce radiation dose to as low as reasonably achievable. Dictated by Keon Delgado MD @ 02/21/2024 2:04:13 AM (Electronically Signed)
--- OUTSIDE RECORDS SUMMARY | 2024-02-20 22:44 | XMS_ITS | Data Portability ---
Author Organization [place] [facility], [facility] Address [address] [place] [address] Assessment No assessment recorded. Plan of Treatment Reminders Order Date Submit Date Provider Last Modified By Organization Details Last Modified Time Details Appointments HOSPITAL 60 2023 10:00A M Vern Ackerman MD Not available Not available Not available Lab urinalysi s, dipstick 2023 024 [email or web address] [facility], [address], [place], [address], 02/18/2024 11:58:37 Referral None recorded. Procedures None recorded. Surgeries None recorded. Imaging None recorded. Medication Orders hydromorp abigail [address] [id number], [address] [place], [place], [phone], 02/18/2024 12:05:42 Patient TargetsNo targets recorded. Patient Instructions Encounter Date Encounter Id Patient Instructions Last Modified By Organization Details Last Modified Time 02/18/2024 [id number] will set up for cysto right ureteral catheter right ESWL next week charito or avelino. [email or web address] Not available 02/18/2024 12:01:19 Reason for Referral None Reported. Results Created Date Observation Date Name Description Value Unit Range Abnormal Flag LastModifiedBy Organization Detail LastModifiedTime 02/18/20 24 02/18/2024 urina lysis , dipst ick BLOOD Large (250 RBC/uL ) Not Available [facility] [address], [place], [address], 02/17/2024 17:43:19 02/18/20 24 02/18/2024 urina lysis , dipst ick KETONES Trace (5 mg/dL) Not Available [facility] [address], [place], [address], 02/17/2024 17:43:19 02/18/20 24 02/18/2024 urina lysis , dipst ick PROTEIN Trace (10 mg/dL) Not Available [facility] [address], [place], [address], 02/17/2024 17:43:19 02/18/20 24 02/18/2024 XR, kidne y + urete r + bladd er EXAM: XR, KIDNEY + URETER + BLADDE R [facility]ATI [facility] DATE: 024 INDICA TION: Calcul us of kidney COMPAR JUSTIN: None availa ble IMPRES DEIRDRE: 7 mm calcul us is noted to be an adjace nt to the right transv erse proces s of L4 and may reflec t a ureter al stone. Sugges t furthe r charac teriza tion with CT exam. Modera te stool burden is seen throug hout the colon. Nonobs tructi ve bowel gas patter n. No acute bony abnorm ality is seen. This report was electr onical ly interp reted by: Aubrey Sandy MD on 2023 at 11:18 [email or web address] [facility] [address], [place], [address], 02/18/2024 13:21:53 Result Notes Documentation Provider Name and Address Organization Details Recorded Time Xr, Kidney + Ureter + Bladder : EXAM: XR, KIDNEY + URETER + BLADDER LOCATION: [facility] DATE: 02/18/2024 INDICATION: Calculus of kidney COMPARISON: None available IMPRESSION: 7 mm calculus is noted to be an adjacent to the right transverse process of L4 and may reflect a ureteral stone. Suggest further characterization with CT exam. Moderate stool burden is seen throughout the colon. Nonobstructive bowel gas pattern. No acute bony abnormality is seen. This report was electronically interpreted by: Aubrey Sandy MD on 02/18/2024 at 11:18 Vern Ackerman MD [address] [place] [address],[address] [place] [address], [phone], [facility] 02/18/2024 13:21:53 Problems Name Status Onset Date Resolution Date Notes Provider Name and Address Organization Details Recorded Time Kidney stone Active 4 Vern Ackerman MD [address] [place] [address],[facility] [address], [address], [facility] 02/18/2024 12:02:11 Problem Notes None recorded. Procedures Surgical History None recorded. Imaging Results Imaging Date Name Status LastModified by Organiz ation Details LastModified Time 02/18/2024 XR, kidney + ureter + bladder completed [email or web address] [facility] [address], [place], [address], 02/18/2024 13:21:53 Procedure Notes None recorded. Medical Equipment None Reported. Allergies Allergen ID Allergen Name Allergen Category Reaction Reaction Severity Criticality Documentation Date Start Date Code Code System Note Provider Name and Address Organization Details Recorded Time [id number] Medicinal product containin g penicilli n and acting as antibacte rial agent (product) medicatio n Not available Not available Not available 02/18/2024 63214 05 SNOMED Vern Ackerman MD [address] [place] [address],[address] [place] [address], [phone], [facility] 4 11:47:41 [id number] acetamino phen / oxycodone medicatio n Not available Not available Not available 02/18/2024 33057 3 RxNorm Vern Ackerman MD [address] [place] [address],[address] [place] [address], [phone], [facility] 4 11:47:48 Medications Name Sig Start Date Stop Date Status Note LastModified by Organization Details LastModified Time hydromorphon e 2 mg tablet Take 1 tablet every 4 hours by oral route as needed. 2023 active Not Available Not Available Not Avai lable ondansetron 4 mg disintegrati ng tablet Place 2 tablets twice a day by translingua l route. active Not Available Not Available No t Available Toradol 10 mg tablet Take 1 tablet every 6 hours by oral route. active Not Available Not Available Not Available Vitals Date Recorded Body height Body mass index (BMI) Body weight Provider Name and Address Organization Details Last Updated DateTime 02/18/2024 167.64 cm 35.5 kg/m2 22739.32 g Vern Ackerman MD [address] [place] [address],[address] [id number] [place] [address] Urology 02/18/2024 11:47:20 Social History Question Answer Notes LastModified by Organizat ion Details LastModified Time Tobacco Smoking Status Current Every Day Smoker Vern Ackerman MD [address] [place] [address],[place] [phone] [place] [address] U[facility] 02/18/2024 11:49:54 What Is Your Level Of Alcohol Consumption? None [email or web address] Information not available 02/18/2024 What Is Your Level Of Caffeine Consumption? Moderate [email or web address] Information not available 02/18/2024 What Was The Date Of Your Most Recent Tobacco Screening? 02/18/2024 [email or web address] Information not available 02/18/2024 Sex: Male Functional Status None recorded. Mental Status None recorded. Family History Nothing Reported. Medical History Condition Response Other N High Blood Pressure N Kidney Stones Y Lung Disease N Depression N GERD/Acid Reflux N Sexually Transmitted Infection N Cancer N High Cholesterol N Diabetes N Bleeding Disorder N Heart Disease N Past Encounters Encounter ID Performer Location Encounter Start Date Encounter Closed Date Diagnosis/Indication Diagnosis SNOMED-CT Code [id number] Vern Ackerman MD [facility] [address] [place] [address] 02/18/2024 10:14:40 02/18/2024 12:01:45 Kidney stone [id number] Health Concerns Section Related Observation LastModified by Organization Detai ls LastModified Time None Recorded Concern Status LastModified by Organization Details LastModified Time None Recorded Advance Directives Directive None Recorded Payers Encounter Date Sequence Insurance Name Policy Number Policy Carter Covered Member ID Carter Member ID Guarantor Name 02/18/2024 1 [place] Denis Seth [id number] Denis Seth Notes Date Note Type Note Provider Name and Address Organization Details Recorded Time 02/18/2024 text/html HPI Notes: Patie nt is here today for kidney stone. UA Blo large. Patient is here today for kidney stone. UA mod RBC. has 10mm stone left upper ureter sxs started bout 6 months ago on and off but got really bad a few days ago. had CT showing the stone right UPJ. KUB today confirms radioopaque stone in same area. has had stone before last about 3 years ago passed spontaneously. mother had stones. Vern Ackerman MD [address] [address], [place], [address], [facility] 02/18/2024 13:25:41
--- OUTSIDE RECORDS SUMMARY | 2024-02-20 22:45 | XMS_ITS | Continuity of Care Document ---
Author Organization [place] [facility] Address [address] [place] [address] Assessment No assessment recorded. Plan of Treatment Reminders Order Date Submit Date Provider Last Modified By Organization Details Last Modified Time Details Appointments HOSPITAL 60 2023 10:00A M Vern Ackerman MD Not available Not available Not available Lab urinalysi s, dipstick 2023 024 [email or web address] [facility], [address], [place], [address], 02/18/2024 11:58:37 Referral None recorded. Procedures None recorded. Surgeries None recorded. Imaging None recorded. Medication Orders hydromorp abigail 2 mg tablet 2023 024 [id number], [address] [place], [place], [phone], 02/18/2024 12:05:42 Patient TargetsNo targets recorded. Patient Instructions Encounter Date Encounter Id Patient Instructions Last Modified By Organization Details Last Modified Time 02/18/2024 [id number] will set up for cysto right ureteral catheter right ESWL next week charito or avelino. [email or web address] Not available 02/18/2024 12:01:19 Reason for Referral None Reported. Results Created Date Observation Date Name Description Value Unit Range Abnormal Flag LastModifiedBy Organization Detail LastModifiedTime 02/18/20 24 02/18/2024 urina lysis , dipst ick BLOOD Large (250 RBC/uL ) Not Available [facility] [address], [place], [address], 02/17/2024 17:43:19 02/18/20 24 02/18/2024 urina lysis , dipst ick KETONES Trace (5 mg/dL) Not Available [facility] [address], [place], [address], 02/17/2024 17:43:19 02/18/20 24 02/18/2024 urina lysis , dipst ick PROTEIN Trace (10 mg/dL) Not Available [facility] [address], [place], [address], 02/17/2024 17:43:19 02/18/20 24 02/18/2024 XR, kidne y + urete r + bladd er EXAM: XR, KIDNEY + URETER + BLADDE R LOCATI ON: [facility] DATE: 024 INDICA TION: [...] Aubrey Sandy MD on 2023 at 11:18 [email or web address] [facility] [place] [address] [address], [place], [address], 02/18/2024 13:21:53 Result Notes Documentation Provider Name and Address Organization Details Recorded Time Xr, Kidney + Ureter + Bladder : EXAM: XR, KIDNEY + URETER + BLADDER LOCATION: [facility] DATE: 02/18/2024 INDICATION: Calculus of kidney COMPARISON: [...] on 02/18/2024 at 11:18 Vern Ackerman MD [address] [place] [address],[address], [address] [place] [address], [facility] 02/18/2024 13:21:53 Problems Name Status Onset Date Resolution Date Notes Provider Name and Address Organization Details Recorded Time Kidney stone Active 4 Vern Ackerman MD [address] [place] [address],[address], [address], [facility] 02/18/2024 12:02:11 Problem Notes None recorded. Medical Equipment None Reported. Allergies Allergen ID Allergen Name Allergen Category Reaction Reaction Severity Criticality Documentation Date Start Date Code Code System Note Provider Name and Address Organization Details Recorded Time [id number] Medicinal product containin g penicilli n and acting as antibacte rial agent (product) medicatio n Not available Not available Not available 02/18/2024 40226 05 SNOMED Vern Ackerman MD [address] [place] [address],[address] [place] [address], [phone], [facility] 4 11:47:41 [id number] acetamino phen / oxycodone medicatio n Not available Not available Not available 02/18/2024 31226 3 RxNorm Vern Ackerman MD [address] [place] [address],[address] [place], [place] [phone], [facility] 4 11:47:48 Medications Name Sig Start Date [...] Updated DateTime 02/18/2024 167.64 cm 35.5 kg/m2 06647.32 g Vern Ackerman MD [address] [facility] [address] [id number] 02/18/2024 11:47:20 Social History Question Answer Notes LastModified by Organizat ion Details LastModified Time Tobacco Smoking Status Current Every Day Smoker Vern Ackerman MD [address] [facility] [address], [place], [address] 02/18/2024 11:49:54 What Is Your Level Of Alcohol Consumption? None [email or web address] Information not available 02/18/2024 What Is Your Level Of Caffeine Consumption? Moderate [email or web address] Information not available 02/18/2024 What Was The Date Of Your Most Recent Tobacco Screening? 02/18/2024 [email or web address] Information not available 02/18/2024 Sex: Male Functional Status None recorded. Mental Status None recorded. Family History Nothing Reported. Medical History Condition Response Diabetes N Sexually Transmitted Infection N Bleeding Disorder N Other N High Blood Pressure N Kidney Stones Y Cancer N Lung Disease N Depression N High Cholesterol N GERD/Acid Reflux N Heart Disease N Past Encounters Encounter ID Performer Location Encounter Start Date Encounter Closed Date Diagnosis/Indication Diagnosis SNOMED-CT Code [id number] Vern Ackerman MD [facility] [address] [place] [address] 02/18/2024 10:14:40 02/18/2024 12:01:45 Kidney stone [id number] Health Concerns Section Related Observation LastModified by Organization Detai ls LastModified Time None Recorded Concern Status LastModified by Organization Details LastModified Time None Recorded Payers Encounter Date Sequence Insurance Name Policy Number Policy Carter Covered Member ID Carter Member ID Guarantor Name 02/18/2024 1 [place] Denis Seth [id number] Denis Seth Notes Date Note Type Note [...] mother had stones. Vern Ackerman MD [address] [facility],[address], [place], [address], [facility] 02/18/2024 13:25:41
[2024-02-20] MEDS: 0.9 % SODIUM CHLORIDE 1000 ml 1,000 ML IV (23:09)
[2024-02-20] MEDS: KETOROLAC 30 MG/ML inj IVP (23:10)
[2024-02-20] MEDS: HYDROmorphone 0.5 mg/0.5 ml inj 1 MG IVP (23:10)
[2024-02-20 23:13] LABS: Basophils Percent Auto 0.5 % (0.0-3.0); Eosinophils Percent Auto 4.2 % (0.0-7.0); Hematocrit 42.8 % (37.0-53.0); Hemoglobin* 14.8 gm/dL (13.5-17.5); Immature Granulocytes Pct Auto 0.7 %; Lymphocytes Percent Auto 24.7 % (20-44); Mean Corpuscular HGB Conc 35 gm/dL (32-36); Mean Corpuscular Hemoglobin 31 pg (26-34); Mean Corpuscular Volume 91 fL (80-100); Monocytes Percent Auto 6.9 % (0.0-11.0); Platelet Count* 282 K/uL (140-440); RDW Coefficient of Variation % 11.8 % (11.5-15.5); Red Blood Count 4.72 m/uL (4.30-5.90); White Blood Count* 12.02 K/uL (4.50-11.00)
[2024-02-20 23:16] LABS: Slide Review Reflex No
[2024-02-20 23:20] LABS: Appearance Urine Clear (Clear); Bilirubin Urine 1+ (Negative); Color Urine Yellow (Yellow); Glucose Urine Negative (Negative); Ketones Urine 3+ (Negative)
[2024-02-20 23:21] LABS: Bacteria Urine Few; Blood Urine 2+ (Negative); Leukocyte Esterase Urine Negative (Negative); Nitrite Urine Negative (Negative); Protein Urine Trace (Negative); RBC Urine 25-50 (0-2); Squamous Epithelial Cell Urine Few (None-Few)
[2024-02-20 23:29] LABS: Chloride* 106 mmol/L (96-114); Sodium* 137 mmol/L (135-149)
[2024-02-20 23:30] VITALS: BP 122/77; PULSE 76; RESP 18; O2SAT 91
--- NOTE | 2024-02-20 23:31 | ED.ABDPAIN ---
HPI - Abdominal Pain General Date Seen: 02/20/24 <Henok Tony MD - Last Filed: 02/20/24 23:35> Chief Complaint: Flank Pain <Henok Tony MD - Last Filed: 02/20/24 23:35> Stated Complaint: Kidney stone <Henok Tony MD - Last Filed: 02/20/24 23:35> Time Seen by Provider: 02/20/24 22:30 <Henok Tony MD - Last Filed: 02/20/24 23:35> Source: patient <Henok Tony MD - Last Filed: 02/20/24 23:35> Mode of arrival: ambulatory <Henok Tony MD - Last Filed: 02/20/24 23:35> Limitations: no limitations <Henok Tony MD - Last Filed: 02/20/24 23:35> History of Present Illness HPI narrative: patient has 10mm kidney stone, karyn. for surgery on Wednesday with [facility]. Dr Becker. patients pain is not tolerable with home meds so he comes to ED for pain control. last had 2mg PO dilaudid at 1900 and extra strength Tylenol w/o relief. patient was seen in our ER on wednesday Patient presents with uncontrolled intractable pain. He took his Dilaudid before coming here and says it is not even touching his pain. He has a known 10 mm kidney stone, on the right renal your of his uterovesical junction. Surgery is noted for this coming Wednesday, with Dr. Ackerman. Has had no nausea vomiting or other issues. Denies any fevers chills <Henok Tony MD - Last Filed: 02/20/24 23:35> MD elicited complaint: abdominal pain and flank pain <Henok Tony MD - Last Filed: 02/20/24 23:35> Related Data Home Medications: Home Medications ?Medication ?Instructions ?Recorded ?Confirmed sulfamethoxazole 800 1 tab PO BID 02/01/24 02/01/24 mg-trimethoprim 160 mg tablet Previous Rx's ?Medication ?Instructions ?Recorded hydromorphone 2 mg tablet 2 mg PO Q4H PRN pain #7 tabs 02/16/24 (Dilaudid) <Henok Tony MD - Last Filed: 02/20/24 23:35> Allergies/Adverse Reactions: Allergies Allergy/AdvReac Type Severity Reaction Status Date / Time acetaminophen [From Percocet] AdvReac Verified 02/01/24 09:39 oxycodone [From Percocet] AdvReac Verified 02/01/24 09:39 Penicillins AdvReac Verified 02/01/24 09:39 <Henok Tony MD - Last Filed: 02/20/24 23:35> Review of Systems Status of ROS Reports: 10 or more systems reviewed and unremarkable except as noted in History and below <Henok Tony MD - Last Filed: 02/20/24 23:35> [facility] Medical History: Medical History Ankle fracture ?S82.899A - Other fracture of unspecified lower leg, initial encounter for closed fracture (ICD-10) <Henok Tony MD - Last Filed: 02/20/24 23:35> Surgical History: Surgical History History of surgery on lower extremity ?Z98.890 - Other specified postprocedural states (ICD-10) <Henok Tony MD - Last Filed: 02/20/24 23:35> Social History: Social History What is your current living situation?: I presently have a place to live Problems where you live: no known problems In the past 12 months, utilities in danger of being shut off: no In past 12 months, lack of transportation kept you from medical appts, meetings, work, or getting things needed for daily living: no In the past 12 mos, have been you worried that your food would run out before you had money to buy more?: never true In the past 12 mos, the food you bought just didn't last and you didn't have money to buy more?: never true Smoking Status: Current every day smoker What tobacco products do you use: cigarettes Smoking packs per day: 1 Smoking cigarettes per day: 20.0 Do you use any of these nicotine containing products: None Second hand tobacco smoke exposure: No How often do you have a drink containing alcohol: never AUDIT-C Alcohol total score: 0 Non-prescribed substance use: denies use How often does anyone, including family, friends and others, physically hurt you: never How often does anyone, including family, friends and others, insult or talk down to you: never How often does anyone, including family, friends and others, threaten you with harm: never How often does anyone, including family, friends and others, scream or curse at you: never Little interest or pleasure in doing things: nearly every day Feeling down, depressed, or hopeless: several days service: No <Henok Tony MD - Last Filed: 02/20/24 23:35> Exam Narrative: Exam Narrative: Patient appears standing, and some [id number] distress. Examination shows large belly, no evidence of any tenderness to palpation, bowel sounds are normal no groin all discomfort. No testicular pain. Mild right CVA discomfort is notable. No lumbar spine tenderness to palpation. Chest is good air entry bilaterally heart sounds are normal moves all extremities independently and well. <Henok Tony MD - Last Filed: 02/20/24 23:35> Const: Vital Signs, click to edit/add: Vital Signs - 24 hr 02/20/24 22:26 02/20/24 23:30 02/21/24 00:30 Temperature 97.6 F Pulse Rate [Pulse Oximeter] 65 76 81 Respiratory Rate 18 18 18 Blood Pressure [Ri ght Upper Arm] 152/95 H 122/77 107/73 Pulse Oximetry 95 91 95 Oxygen Delivery Me thod Room Air Room Air Room Air 02/21/24 01:00 Temperature Pulse Rate [Pulse Oximeter] 66 Respiratory Rate 16 Blood Pressure [Ri ght Upper Arm] 110/67 Pulse Oximetry 95 Oxygen Delivery Me thod Room Air <Henok Tony MD - Last Filed: 02/20/24 23:35> Vital Signs, click to edit/add: Vital Signs - 24 hr 02/20/24 22:26 02/20/24 23:30 02/21/24 00:30 Temperature 97.6 F Pulse Rate [Pulse Oximeter] 65 76 81 Respiratory Rate 18 18 18 Blood Pressure [Ri ght Upper Arm] 152/95 H 122/77 107/73 Pulse Oximetry 95 91 95 Oxygen Delivery Me thod Room Air Room Air Room Air 02/21/24 01:00 Temperature Pulse Rate [Pulse Oximeter] 66 Respiratory Rate 16 Blood Pressure [Ri ght Upper Arm] 110/67 Pulse Oximetry 95 Oxygen Delivery Me thod Room Air <Dale Beauchamp MD - Last Filed: 02/21/24 01:33> Documenting provider has reviewed patient's vital signs: yes <Henok Tony MD - Last Filed: 02/20/24 23:35> Course Reevaluation(s) Time of Reevaluation #1: 00:39 <Dale Beauchamp MD - Last Filed: 02/21/24 01:33> Reevaluation #1: Patient seen and examined, reports flank pain not controlled with Dilaudid at home. Has been seen twice for this on January 25 and February 15. Has been seen by Urology with plan for removal in three days. Presents with uncontrolled pain. On exam here vital is stable, creatinine has increased slightly from 1.3 to 1.8. Urinalysis today without evidence for infection. Will discuss with urology for likely transfer. Discussed with Yumiko at the transfer center. Patient rechecked and pain is improved. <Dale Beauchamp MD - Last Filed: 02/21/24 01:33> Time of Reevaluation #2: 01:12 <Dale Beauchamp MD - Last Filed: 02/21/24 01:33> Reevaluation #2: Care discussed with Dr. Moe, [facility] who agrees on plan for transfer. It sounds like there is a transfer delay at [place] and so patient will be watched in the emergency department here and continue with pain control. <Dale Beauchamp MD - Last Filed: 02/21/24 01:33> Time of Reevaluation #3: 01:33 <Dale Beauchamp MD - Last Filed: 02/21/24 01:33> Reevaluation #3: Care discussed with Dr. Merino, [facility] hospitalist who accepts patient for transfer. Two most recent CT scans pushed to [place]. <Dale Beauchamp MD - Last Filed: 02/21/24 01:33> Vital Signs Vital signs: Initial Vital Signs Temperature 97.6 F 02/20/24 22:26 Temperature Source Temporal Artery Scan 02/20/24 22:26 Pulse Rate 65 02/20/24 22:26 Respiratory Rate 18 02/20/24 22:26 Blood Pressure 152/95 H 02/20/24 22:26 Blood Pressure Mean 114 H 02/20/24 22:26 Blood Pressure Position Sitting 02/20/24 22:26 Pulse Oximetry 95 02/20/24 22:26 Oxygen Delivery Method Room Air 02/20/24 22:26 Vital Signs Temperature 97.6 F 02/20/24 22:26 Pulse Rate 65 02/20/24 22:26 Respiratory Rate 18 02/20/24 22:26 Blood Pressure 152/95 H 02/20/24 22:26 Pulse Oximetry 95 02/20/24 22:26 Oxygen Delivery Method Room Air 02/20/24 22:26 Temperature 97.6 F 02/20/24 22:26 Pulse Rate 66 02/21/24 01:00 Respiratory Rate 16 02/21/24 01:00 Blood Pressure 110/67 02/21/24 01:00 Pulse Oximetry 95 02/21/24 01:00 Oxygen Delivery Method Room Air 02/21/24 01:00 <Henok Tony MD - Last Filed: 02/20/24 23:35> Initial Vital Signs Temperature 97.6 F 02/20/24 22:26 Temperature Source Temporal Artery Scan 02/20/24 22:26 Pulse Rate 65 02/20/24 22:26 Respiratory Rate 18 02/20/24 22:26 Blood Pressure 152/95 H 02/20/24 22:26 Blood Pressure Mean 114 H 02/20/24 22:26 Blood Pressure Position Sitting 02/20/24 22:26 Pulse Oximetry 95 02/20/24 22:26 Oxygen Delivery Method Room Air 02/20/24 22:26 Vital Signs Temperature 97.6 F 02/20/24 22:26 Pulse Rate 65 02/20/24 22:26 Respiratory Rate 18 02/20/24 22:26 Blood Pressure 152/95 H 02/20/24 22:26 Pulse Oximetry 95 02/20/24 22:26 Oxygen Delivery Method Room Air 02/20/24 22:26 Temperature 97.6 F 02/20/24 22:26 Pulse Rate 66 02/21/24 01:00 Respiratory Rate 16 02/21/24 01:00 Blood Pressure 110/67 02/21/24 01:00 Pulse Oximetry 95 02/21/24 01:00 Oxygen Delivery Method Room Air 02/21/24 01:00 <Dale Beauchamp MD - Last Filed: 02/21/24 01:33> Medications Administered Medications: Discontinued Medications Generic Name Dose Route Start Last Admin Trade Name Freq PRN Reason Stop Dose Admin Hydromorphone HCl 1 mg 02/20/24 22:39 02/20/24 23:10 Hydromorphone 0.5 Mg/0.5 Ml Inj IVP 02/20/24 22:40 1 mg ONCE ONE Administration Sodium Chloride 1,000 mls @ 1,000 mls/hr 02/20/24 22:45 02/21/24 00:10 0.9 % Sodium Chloride 1000 Ml IV 02/20/24 23:44 Infused .Q1H KARYN Infusion Ketorolac Tromethamine 30 mg 02/20/24 22:39 02/20/24 23:10 Ketorolac 30 Mg/Ml Inj IVP 02/20/24 22:40 30 mg ONCE ONE Administration <Henok Tony MD - Last Filed: 02/20/24 23:35> Discontinued Medications Generic Name Dose Route Start Last Admin Trade Name Freq PRN Reason Stop Dose Admin Hydromorphone HCl 1 mg 02/20/24 22:39 02/20/24 23:10 Hydromorphone 0.5 Mg/0.5 Ml Inj IVP 02/20/24 22:40 1 mg ONCE ONE Administration Sodium Chloride 1,000 mls @ 1,000 mls/hr 02/20/24 22:45 02/21/24 00:10 0.9 % Sodium Chloride 1000 Ml IV 02/20/24 23:44 Infused .Q1H KARYN Infusion Ketorolac Tromethamine 30 mg 02/20/24 22:39 02/20/24 23:10 Ketorolac 30 Mg/Ml Inj IVP 02/20/24 22:40 30 mg ONCE ONE Administration <Dale Beauchamp MD - Last Filed: 02/21/24 01:33> MDM - Abdominal Pain MDM Narrative Medical decision making narrative: During this evaluation of this patient I considered multiple differential diagnosis is which included the life-threatening such as appendicitis, aortic aneurysm, mesenteric ischemia, bowel perforation, volvulus, and bowel obstruction. Other differential diagnosis is include but are not limited to cholecystitis, pancreatitis, hepatitis, gastritis, GERD, diverticulitis, peptic ulcer disease, pyelonephritis/UTI, renal colic/stone, testicular torsion as well as other acute scrotal processes, inflammatory bowel disease, as well as other etiologies I discussed with him we will get a CT to ensure that the stone has not moved. I will give him some Dilaudid and some Toradol and IV fluids. Ensure that there is no infection. He will be signed over to the oncoming ER physician for disposition. <Henok Tony MD - Last Filed: 02/20/24 23:35> Medical Records Attestation: I reviewed the patient's medical records. <Henok Tony MD - Last Filed: 02/20/24 23:35> Lab Data Attestation: I reviewed the patient's lab results. <Henok Tony MD - Last Filed: 02/20/24 23:35> Labs: Lab Results 02/20/24 02/20/24 Range/Units 22:55 23:00 WBC 12.02 H (4.50-11.00) K/uL RBC 4.72 (4.30-5.90) m/uL Hgb 14.8 (13.5-17.5) gm/dL Hct 42.8 (37.0-53.0) % MCV 91 (80-100) fL MCH 31 (26-34) pg MCHC 35 (32-36) gm/dL RDW Coeff of [place] 11.8 (11.5-15.5) % Plt Count 282 (140-440) K/uL Neut % (Auto) 63.0 (42.0-72.0) % Lymph % (Auto) 24.7 (20-44) % Jackson % (Auto) 6.9 (0.0-11.0) % Eos % (Auto) 4.2 (0.0-7.0) % Baso % (Auto) 0.5 (0.0-3.0) % Neut # (Auto) 7.60 H (1.7-7.0) K/uL Lymph # (Auto) 3.00 H (0.90-2.90) K/uL Jackson # (Auto) 0.80 (0.00-0.90) K/UL Eos # (Auto) 0.50 (0.00-0.50) K/uL Baso # (Auto) 0.10 (0.00-0.30) K/uL Abs Immat Gran (auto) 0.10 (0.00-0.30) K/uL Imm/Tot Granulo (auto) 0.7 % Sodium 137 (135-149) mmol/L Potassium 4.0 (3.6-5.1) mmol/L Chloride 106 (96-114) mmol/L Carbon Dioxide 24 (20-32) mmol/L Anion Gap 7 (7-15) mEq/L BUN 18 (5-24) mg/dL Creatinine 1.8 H (0.5-1.5) mg/dL Estimated GFR 50 ml/min Glucose 90 (60-115) mg/dL Calcium 8.9 (8.4-10.6) mg/dL C-Reactive Protein 3.5 H (0.5-1.0) mg/dL Urine Color Yellow (Yellow) Urine Appearance Clear (Clear) Urine pH 6.0 (5.0-8.5) Ur Specific [place] 1.020 (1.000-1.030) Urine Protein Trace A (Negative) Urine Glucose (UA) Negative (Negative) Urine Ketones 3+ A (Negative) Urine Blood 2+ A (Negative) Urine Nitrite Negative (Negative) Urine Bilirubin 1+ A (Negative) Urine Urobilinogen 1.0 (0.2-1.0) Ur Leukocyte Esterase Negative (Negative) Urine RBC 25-50 A (0-2) Urine WBC 2-5 (0-5) Ur Squamous Epith Cells Few (None-Few) Urine Bacteria Few A (None) <Henok Tony MD - Last Filed: 02/20/24 23:35> Lab Results 02/20/24 02/20/24 Range/Units 22:55 23:00 WBC 12.02 H (4.50-11.00) K/uL RBC 4.72 (4.30-5.90) m/uL Hgb 14.8 (13.5-17.5) gm/dL Hct 42.8 (37.0-53.0) % MCV 91 (80-100) fL MCH 31 (26-34) pg MCHC 35 (32-36) gm/dL RDW Coeff of [place] 11.8 (11.5-15.5) % Plt Count 282 (140-440) K/uL Neut % (Auto) 63.0 (42.0-72.0) % Lymph % (Auto) 24.7 (20-44) % Jackson % (Auto) 6.9 (0.0-11.0) % Eos % (Auto) 4.2 (0.0-7.0) % Baso % (Auto) 0.5 (0.0-3.0) % Neut # (Auto) 7.60 H (1.7-7.0) K/uL Lymph # (Auto) 3.00 H (0.90-2.90) K/uL Jackson # (Auto) 0.80 (0.00-0.90) K/UL Eos # (Auto) 0.50 (0.00-0.50) K/uL Baso # (Auto) 0.10 (0.00-0.30) K/uL Abs Immat Gran (auto) 0.10 (0.00-0.30) K/uL Imm/Tot Granulo (auto) 0.7 % Sodium 137 (135-149) mmol/L Potassium 4.0 (3.6-5.1) mmol/L Chloride 106 (96-114) mmol/L Carbon Dioxide 24 (20-32) mmol/L Anion Gap 7 (7-15) mEq/L BUN 18 (5-24) mg/dL Creatinine 1.8 H (0.5-1.5) mg/dL Estimated GFR 50 ml/min Glucose 90 (60-115) mg/dL Calcium 8.9 (8.4-10.6) mg/dL C-Reactive Protein 3.5 H (0.5-1.0) mg/dL Urine Color Yellow (Yellow) Urine Appearance Clear (Clear) Urine pH 6.0 (5.0-8.5) Ur Specific [place] 1.020 (1.000-1.030) Urine Protein Trace A (Negative) Urine Glucose (UA) Negative (Negative) Urine Ketones 3+ A (Negative) Urine Blood 2+ A (Negative) Urine Nitrite Negative (Negative) Urine Bilirubin 1+ A (Negative) Urine Urobilinogen 1.0 (0.2-1.0) Ur Leukocyte Esterase Negative (Negative) Urine RBC 25-50 A (0-2) Urine WBC 2-5 (0-5) Ur Squamous Epith Cells Few (None-Few) Urine Bacteria Few A (None) <Dale Beauchamp MD - Last Filed: 02/21/24 01:33> Discharge Plan Discharge Clinical Impression: Calculus of proximal right ureter, FLOR (acute kidney injury) <Henok Tony MD - Last Filed: 02/20/24 23:35> Patient Disposition: [facility] <Henok Tony MD - Last Filed: 02/20/24 23:35> Prescriptions: No Action sulfamethoxazole-trimethoprim 800-160 mg tablet 1 tab PO BID hydromorphone [Dilaudid] 2 mg tablet 2 mg PO Q4H PRN (Reason: pain) Qty: 7 0RF <Henok Tony MD - Last Filed: 02/20/24 23:35> Stand Alone Forms: MyHealth Info Instructions <Henok Tony MD - Last Filed: 02/20/24 23:35>
[2024-02-20 23:32] LABS: Creatinine* 1.8 mg/dL (0.5-1.5); Estimated Glomerular Filt Rate 50 ml/min
[2024-02-20 23:33] LABS: Anion Gap 7 mEq/L (7-15); Blood Urea Nitrogen* 18 mg/dL (5-24); Calcium* 8.9 mg/dL (8.4-10.6); Carbon Dioxide* 24 mmol/L (20-32); Glucose* 90 mg/dL (60-115)
[2024-02-20 23:35] LABS: C Reactive Protein* 3.5 mg/dL (0.5-1.0)
[2024-02-21] VITALS (22 sets, daily range): BP systolic 98–110; BP diastolic 63–74; PULSE 50–81; RESP 16–18; TEMP 36.6; O2SAT 91–96
[2024-02-21] MEDS: 0.9 % SODIUM CHLORIDE 1000 ml 1,000 ML 125 ML IV (01:33)
[2024-02-21] MEDS: HYDROmorphone 0.5 mg/0.5 ml inj 5 MG IVP (06:57)
--- NOTE | 2024-02-21 07:51 | ED.NURSE ---
continues pain free. continue waiting for bed at [facility]
--- NOTE | 2024-02-21 09:29 | ED.NURSE ---
[facility] called for update. continue to wait for bed
== END 2024-02-21 11:44 | disposition home or self-care (01) ==
PROVIDERS: Family Medicine; Emergency Provider Family Medicine; PCP Family Medicine
DX: N20.1 Calculus of ureter (principal); N17.9 Acute kidney failure, unspecified
CPT/HCPCS: 36415; 74176; 80048; 81001; 85025; 86140; 87086; 96374; 96375; 99284; 99285; J1170; J1885; J7030

== ENCOUNTER 2024-07-24 15:38 | Emergency (ER) | payer MEDICAID, SELFPAY ==
[2024-07-24 15:44] VITALS: BP 95/59; PULSE 82; RESP 18; TEMP 36.9; O2SAT 95; BMI 38.7
[2024-07-24 15:49] VITALS: BP 107/73
--- NOTE | 2024-07-24 16:02 | ED_ITS ---
HPI - General Adult General Date Seen: 07/24/24 Chief complaint: Abdominal Pain Stated complaint: Lower R abdominal pain Time Seen by Provider: 07/24/24 15:59 History of Present Illness HPI narrative: 34 yo M with h/o Asthma, kidney stones (had a large stone requiring lithotripsy about 4 months ago), tobacco use, presenting to the ER today with his family for evaluation of abdominal pain, nausea, and sweats. He 1st developed some periumbilical and epigastric abdominal discomfort 2 nights ago on Wednesday evening. Initially thought he might just be hungry so he tried to eat and perhaps felt slightly better but his pain has not really gone away since then. Yesterday, on Wednesday, his pain was present all day long but fairly low, rated 1/10. To this morning while he was at work his pain got worse. He now notes that it hurts with every bump in the car. His pain is moving down into the right lower quadrant. 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 Today he is having increasing nausea and poor appetite. No vomiting. He has had some feelings of warmth and sweats, but no objectively measured fevers. Bowel movements have been normal and soft. No diarrhea. Urination has been normal. No rash. He also knows he has a history of gallstones, diagnosed on his CT scan 4 months ago. He has not had any postprandial pain or pain located directly in his right upper quadrant. Related Data Previous Rx's ?Medication ?Instructions ?Recorded hydromorphone 2 mg tablet 2 mg PO Q6H PRN pain #7 tabs 07/24/24 (Dilaudid) ondansetron HCl 4 mg tablet 4 mg PO Q8H #10 tabs 07/24/24 Allergies Allergy/AdvReac Type Severity Reaction Status Date / Time oxycodone (From Percocet) AdvReac Verified 07/24/24 16:39 Penicillins AdvReac Verified 07/24/24 16:39 PFSH PFS Surgical History (Updated 02/22/24 @ 15:16 by Maria Alejandra Deleon MD) History of surgery on lower extremity ?Z98.890 - Other specified postprocedural states (ICD-10) Social History What is your current living situation?: I presently have a place to live Problems where you live: no known problems In the past 12 months, utilities in danger of being shut off: no In past 12 months, lack of transportation kept you from medical appts, meetings, work, or getting things needed for daily living: no In the past 12 mos, have been you worried that your food would run out before you had money to buy more?: never true In the past 12 mos, the food you bought just didn't last and you didn't have money to buy more?: never true Smoking Status: Current every day smoker What tobacco products do you use: cigarettes Smoking packs per day: 1 Smoking cigarettes per day: 20.0 Do you use any of these nicotine containing products: None Second hand tobacco smoke exposure: No How often do you have a drink containing alcohol: never How often do you have six or more drinks on one occasion: Never AUDIT-C Alcohol total score: 0 Non-prescribed substance use: denies use How often does anyone, including family, friends and others, physically hurt you : never How often does anyone, including family, friends and others, insult or talk down to you: never How often does anyone, including family, friends and others, threaten you with harm: never How often does anyone, including family, friends and others, scream or curse at you: never Little interest or pleasure in doing things: nearly every day Feeling down, depressed, or hopeless: several days service: No Exam Narrative: Exam Narrative: Constitutional: Appears well-developed and well-nourished. Alert. Conversant. Non toxic. HENT: Head: Atraumatic. Nose: Nose normal. Mouth/Throat: Oral mucosa is clear and moist. no trismus. Eyes: Conjunctivae normal. EOM normal. Pupils equal, round, and reactive to light. No scleral icterus. Neck: Normal range of motion. Neck supple. No tracheal deviation present. Cardiovascular: Normal rate, regular rhythm. No gallop. No friction rub. No murmur heard. Symmetric radial artery pulses Pulmonary/Chest: Effort normal. No stridor. No respiratory distress. No wheezes. No rales. No rhonchi . No tenderness. Abdominal: Soft. Bowel sounds normal. No distension. No mass. Marked right lower quadrant tenderness. No rebound. No guarding. He does have some Rovsing sign. No right upper quadrant tenderness or Davis sign. No CVA tenderness. Musculoskeletal: RUE: Normal range of motion. No tenderness. No deformity LUE: Normal range of motion. No tenderness. No deformity RLE: Normal range of motion. No edema. No tenderness. No deformity LLE: Normal range of motion. No edema. No tenderness. No deformity Lymph: No cervical adenopathy. Neurological: Alert and oriented to person, place, and time. Normal strength. CN II-VII intact. No sensory deficit. GCS eye subscore is 4. GCS verbal subscore is 5. GCS motor subscore is 6. Normal coordination Skin: Silvery scaly plaques on his knees bilaterally and to a lesser extent on his dorsal elbows suspicious for possible psoriasis. Skin is warm and dry. No rash noted. No pallor. Normal capillary refill. Psychiatric: Normal mood. Normal affect. Const: Vital Signs, click to edit/add: Vital Signs - 24 hr 07/24/24 15:44 07/24/24 15:49 Temperature 98.5 F Pulse Rate [Right Pulse Oximeter] 82 Respiratory Rate 18 Blood Pressure [Ri ght Upper Arm] 95/59 L 107/73 Pulse Oximetry 95 Oxygen Delivery Me thod Room Air Course Course ED Course: [id number]. Labs and CT back in her reassuring. I re-evaluated the patient. He is sitting up in his stool conversant. No fever. No sepsis physiology bili reports no improvement in his abdominal pain after Toradol. Is requesting Dilaudid and reports that he did better with that when he was passing his kidney stones a few months ago them with any other opiates. Had significant GI side effects from oxycodone. IV Dilaudid administered. Discussed the room workup so far. At this point no clear acute medical or surgical condition requiring admission. Discussed in detail with the patient and his . They are comfortable with doing a 12 hour observation and return to the ER for recheck and this pain is improved. No definite appendicitis. No evidence for obstruction, colitis, diverticulitis. Abdominal vasculature open per CT report. He has gallstones but no evidence for any pericholecystic inflammation on the CT scan and his pain is all in the right lower quadrant, not in the right upper quadrant. LFTs mildly abnormal, similar to likely related to fatty liver. Urinalysis negative. No signs of pyuria, infection. No hematuria to suggest stone. No visible obstructing stones or hydronephrosis on the CT scan. Vital Signs Vital signs: Initial Vital Signs Temperature 98.5 F 07/24/24 15:44 Temperature Source Temporal Artery Scan 07/24/24 15:44 Pulse Rate 82 07/24/24 15:44 Pulse Rhythm Regular 07/24/24 15:44 Respiratory Rate 18 07/24/24 15:44 Blood Pressure 95/59 L 07/24/24 15:44 Blood Pressure Mean 71 07/24/24 15:44 Blood Pressure Position Sitting 07/24/24 15:44 Pulse Oximetry 95 07/24/24 15:44 Oxygen Delivery Method Room Air 07/24/24 15:44 Vital Signs Temperature 98.5 F 07/24/24 15:44 Pulse Rate 82 07/24/24 15:44 Respiratory Rate 18 07/24/24 15:44 Blood Pressure 95/59 L 07/24/24 15:44 Pulse Oximetry 95 07/24/24 15:44 Oxygen Delivery Method Room Air 07/24/24 15:44 Temperature 98.5 F 07/24/24 15:44 Pulse Rate 82 07/24/24 15:44 Respiratory Rate 18 07/24/24 15:44 Blood Pressure 107/73 07/24/24 15:49 Pulse Oximetry 95 07/24/24 15:44 Oxygen Delivery Method Room Air 07/24/24 15:44 Medications Administered Medications: Discontinued Medications Generic Name Dose Route Start Last Admin Trade Name Freq PRN Reason Stop Dose Admin Ketorolac Tromethamine 15 mg 07/24/24 16:03 07/24/24 16:27 Ketorolac 15 Mg/Ml Inj IVP 07/24/24 16:04 15 mg ONCE ONE Administration Ondansetron HCl 4 mg 07/24/24 16:03 07/24/24 16:27 Ondansetron 2 Mg/Ml Inj IVP 07/24/24 16:04 4 mg ONCE ONE Administration Medical Decision Making MDM Narrative Medical decision making narrative: Presented to the Emergency Department with right lower quadrant abdominal pain. The differential diagnosis of abdominal pain includes: Appendicitis, Bowel Obstruction, Ulcer, Ischemia, Cholecystitis, Diverticulitis, Pancreatitis, UTI, kidney stone, Enteritis/Colitis, amongst many other etiologies. Laboratory testing does not reveal a cause for the patient's pain. CT Imaging is noted to be normal. The exact etiology of the abdominal pain is not clear at this time. No life threatening cause or need for emergent surgery or hospital admission is detected today. Differential would include atypical presentation of gallstones but he has pain really is all in the right lower quadrant and not in the right upper quadrant. No Davis sign. If pain is not improved would consider repeat labs to look at LFTs and lipase and consider gallbladder ultrasound to check for signs of evolving cholecystitis. He is also having some burping and a little bit of acid reflux taste in his mouth, consider possible gastritis but with pain in the right lower quadrant, that seems less likely. The patient was advised that if symptoms do not completely resolve within another 12 hours re-evaluation with primary care or return to the ED is indicated. The patient also understands that if they worsen, they should return to the ER right away. I discussed the uncertainty about the diagnosis and answered the patient's questions. Abdominal pain return precautions discussed. Prescription for Dilaudid 2 mg tablets provided. He has had opiates in the past when his kidney stone a few months ago and had significant side effects from other oral opiates but did okay with oral Dilaudid. Also prescription for Zofran that he can use p.r.n.. Incidentally he does have fatty liver based on his CT scan. Discussed with the patient and his . Recommend outpatient primary care follow-up for observation. We briefly discussed lifestyle modification. Incidentally he also complains of a scaly rash on his knees and elbows. Suspicious for psoriasis. Has been there for few years. Recommended primary care follow-up. Lab Data Labs: Lab Results 07/24/24 07/24/24 Range/Units 16:30 16:45 WBC 10.98 (4.50-11.00) K/uL RBC 5.16 (4.30-5.90) m/uL Hgb 16.4 (13.5-17.5) gm/dL Hct 47.5 (37.0-53.0) % MCV 92 (80-100) fL MCH 32 (26-34) pg MCHC 35 (32-36) gm/dL RDW Coeff of [place] 12.2 (11.5-15.5) % Plt Count 263 (140-440) K/uL Neut % (Auto) 47.6 (42.0-72.0) % Lymph % (Auto) 41.5 (20-44) % [place] % (Auto) 5.5 (0.0-11.0) % Eos % (Auto) 4.6 (0.0-7.0) % Baso % (Auto) 0.7 (0.0-3.0) % Neut # (Auto) 5.23 (1.7-7.0) K/uL Lymph # (Auto) 4.56 H (0.90-2.90) K/uL [place] # (Auto) 0.60 (0.00-0.90) K/UL Eos # (Auto) 0.50 (0.00-0.50) K/uL Baso # (Auto) 0.08 (0.00-0.30) K/uL Abs Immat Gran (auto) 0.01 (0.00-0.30) K/uL Imm/Tot Granulo (auto) 0.1 % Sodium 136 (135-149) mmol/L Potassium 3.9 (3.6-5.1) mmol/L Chloride 103 (96-114) mmol/L Carbon Dioxide 25 (20-32) mmol/L Anion Gap 8 (7-15) mEq/L BUN 13 (5-24) mg/dL Creatinine 1.1 (0.5-1.5) mg/dL Estimated Creat Clear 84.58 Estimated GFR 90 ml/min Glucose 94 (60-115) mg/dL Calcium 9.4 (8.4-10.6) mg/dL Total Bilirubin 0.3 (0.1-1.5) mg/dL AST 37 H (12-35) U/L ALT 61 H (4-50) U/L Alkaline Phosphatase 73 (40-150) U/L Total Protein 7.7 (6.0-8.3) g/dL Albumin 4.5 (3.3-5.0) g/dL Lipase 67 (23-300) U/L Urine Color Yellow (Yellow) Urine Appearance Clear (Clear) Urine pH 5.0 (5.0-8.5) Ur Specific [place] 1.025 (1.000-1.030) Urine Protein Negative (Negative) Urine Glucose (UA) Negative (Negative) Urine Ketones Negative (Negative) Urine Blood Negative (Negative) Urine Nitrite Negative (Negative) Urine Bilirubin Negative (Negative) Urine Urobilinogen 0.2 (0.2-1.0) Ur Leukocyte Esterase Negative (Negative) Urine RBC 0-2 (0-2) Urine WBC 0-2 (0-5) Ur Squamous Epith Cells None (None-Few) Urine Bacteria None (None) Imaging Data CT scan - abdomen: Attestation: I have reviewed the pertinent imaging results. Radiologist's impression: IMPRESSION: No acute intra-abdominal/pelvic abnormality, including appendicitis. Hepatomegaly with underlying hepatic steatosis. Discharge Plan Discharge Clinical Impression: Abdominal pain, RLQ, Fatty liver, Gallstones Instructions: Abdominal Pain (ED) Additional Instructions: As we discussed, please come back to the ER or see your regular doctor within 12-18 hours if your pain is not improving. If you have worsening symptoms, such as worsening pain, nausea vomiting, fever, then come back to the ER right away to be rechecked Use caution with Dilaudid. Dilaudid, like all opiate pain killers , can cause side effects include using dizziness, drowsiness, constipation, and can be addictive. Do not drive for 6 hours after taking Dilaudid. Prescriptions: New ondansetron HCl 4 mg tablet 4 mg PO Q8H Qty: 10 0RF hydromorphone [Dilaudid] 2 mg tablet 2 mg PO Q6H PRN (Reason: pain) Qty: 7 0RF Follow Up/Referrals: Chavo Noonan MD [Primary Care Provider] - Stand Alone Forms: [employer] Info Instructions
--- NOTE | 2024-07-24 16:03 | CRLHL7_ITS ---
For Patients: As a result of the Century Cures Act, medical imaging exams and procedure reports are released immediately into your electronic medical record. You may view this report before your referring provider. If you have questions, please contact your health care provider. INDICATION: Right lower quadrant abdominal pain, nausea. TECHNIQUE: CT abdomen and pelvis acquired with 118 cc Isovue 370 IV contrast. COMPARISON: None. FINDINGS: Lower chest: Scattered atelectasis. Liver: Hepatomegaly with underlying hepatic steatosis. No suspicious masses. Gallbladder and bile ducts: Cholelithiasis without cholecystitis. Pancreas: Unremarkable. No mass or inflammation. Spleen: Unremarkable. Normal in size. No masses. Adrenal glands: Unremarkable. No nodules. Kidneys: Tiny left superior pole simple renal cyst. No suspicious masses, or hydronephrosis. Punctate nonobstructing right renal stone. GI tract: Mild colonic stool burden. Mild colonic diverticulosis. Normal in caliber. No sign of mass or inflammation. Normal appendix. Vasculature: Abdominal aorta is normal in caliber. Mesenteric arteries are patent. Lymph nodes: No lymphadenopathy. Peritoneum/Abdominal Wall: Tiny fat containing umbilical hernia. No sign of mass or infiltration. No free air or significant free fluid. Pelvis: Unremarkable. Bones: Unremarkable for age. IMPRESSION: No acute intra-abdominal/pelvic abnormality, including appendicitis. Hepatomegaly with underlying hepatic steatosis. Please note that all CT scans at this facility use dose modulation, iterative reconstruction, and/or weight-based dosing when appropriate to reduce radiation dose to as low as reasonably achievable. Dictated by Bradly Haines MD @ 07/24/2024 5:28:25 PM (Electronically Signed)
[2024-07-24] MEDS: ONDANSETRON 2 MG/ML inj 4 MG IVP (16:27)
[2024-07-24] MEDS: KETOROLAC 15 MG/ML inj IVP (16:27)
[2024-07-24 16:39] LABS: Basophils Absolute Auto 0.08 K/uL (0.00-0.30); Basophils Percent Auto 0.7 % (0.0-3.0); Eosinophils Percent Auto 4.6 % (0.0-7.0); Hematocrit 47.5 % (37.0-53.0); Hemoglobin* 16.4 gm/dL (13.5-17.5); Immature Granulocytes Abs Auto 0.01 K/uL (0.00-0.30); Immature Granulocytes Pct Auto 0.1 %; Lymphocytes Absolute Auto 4.56 K/uL (0.90-2.90); Lymphocytes Percent Auto 41.5 % (20-44); Mean Corpuscular HGB Conc 35 gm/dL (32-36); Mean Corpuscular Hemoglobin 32 pg (26-34); Mean Corpuscular Volume 92 fL (80-100); Monocytes Percent Auto 5.5 % (0.0-11.0); Neutrophils Absolute Auto 5.23 K/uL (1.7-7.0); Neutrophils Percent Auto 47.6 % (42.0-72.0); Platelet Count* 263 K/uL (140-440); RDW Coefficient of Variation % 12.2 % (11.5-15.5); Red Blood Count 5.16 m/uL (4.30-5.90); Slide Review Reflex No; White Blood Count* 10.98 K/uL (4.50-11.00)
[2024-07-24 16:53] LABS: Appearance Urine Clear (Clear); Bilirubin Urine Negative (Negative); Blood Urine Negative (Negative); Color Urine Yellow (Yellow); Glucose Urine Negative (Negative); Ketones Urine Negative (Negative); Leukocyte Esterase Urine Negative (Negative); Nitrite Urine Negative (Negative); Protein Urine Negative (Negative); Specific Gravity Urine 1.025 (1.000-1.030); Urobilinogen Urine 0.2 (0.2-1.0)
[2024-07-24 16:55] LABS: Albumin* 4.5 g/dL (3.3-5.0); Chloride* 103 mmol/L (96-114); Potassium* 3.9 mmol/L (3.6-5.1); Sodium* 136 mmol/L (135-149)
[2024-07-24 16:57] LABS: Bilirubin Total* 0.3 mg/dL (0.1-1.5); Creatinine* 1.1 mg/dL (0.5-1.5); Est. Creatinine Clearance* 84.58; Estimated Glomerular Filt Rate 90 ml/min
[2024-07-24 16:58] LABS: Alanine Aminotransferase* 61 U/L (4-50); Alkaline Phosphatase* 73 U/L (40-150); Anion Gap 8 mEq/L (7-15); Aspartate Amino Transferase* 37 U/L (12-35); Blood Urea Nitrogen* 13 mg/dL (5-24); Carbon Dioxide* 25 mmol/L (20-32); Glucose* 94 mg/dL (60-115); Lipase* 67 U/L (23-300); Total Protein* 7.7 g/dL (6.0-8.3)
[2024-07-24 16:59] LABS: Calcium* 9.4 mg/dL (8.4-10.6)
[2024-07-24 17:06] LABS: RBC Urine 0-2 (0-2); WBC Urine 0-2 (0-5)
--- OUTSIDE RECORDS SUMMARY | 2024-07-24 17:06 | XMS_ITS | Clinical Summary ---
Author Organization [facility] Address [place], [place] [address] Care Team Providers Care Associate Professor Of Violin Name Role Phone Pcp, No Primary Care Provider Unavailabl e Allergies Active Allergy Reactions Criticality Noted Date Comments Oxycodone-Acetaminophen Edema 02/05/2011 Swollen lips Penicillins *Unknown - Follow up needed 02/05/2011 Childhood reaction Medications Medication Sig Dispensed Refills Start Date End Date Status methylPREDNISolone (MEDROL DOSEPAK) 4 mg tabletIndications:A cute right-sided low back pain without sciatica Take by mouth as instructed per packaging. 21 Tablet 06/29/2021 Active lidocaine 4 % topical patchIndications:Ac martin right-sided low back pain without sciatica Apply to intact skin to cover most painful area for max 12hr per 24hr period. 7 Patch 06/29/2021 Active cyclobenzaprine (FLEXERIL) 10 mg tabletIndications:L umbar strain, initial encounter Take 1 Tablet (10 mg) by mouth 3 times daily if needed for Muscle Spasm. 30 Tablet 07/01/2021 Active IBUPROFEN ORAL Take 600-800 mg by mouth. Active hydromorphone HCl (DILAUDID ORAL) Take by mouth. Activ e ondansetron HCl (ZOFRAN ORAL) Take by mouth. Active HYDROmorphone (DILAUDID) 2 mg tabletIndications:U reteral stone Take 1 Tablet (2 mg) by mouth every 6 hours if needed for Pain. 12 Tablet 02/23/2024 Active Social History Tobacco Use Types Packs/Day Years Used Date Smoking Tobacco: Every Day Cigarettes 1 23.4 Started: 02/20/2001 Smokeless Tobacco: Never Tobacco Cessation:Ready to Q uit: Not Asked; Counseling Given: Not Answered Alcohol Use Standard Drinks/Week Comments Never 0 (1 standard drink = 0.6 oz pur e alcohol) Social Connections Answer Date Recorded Frequency of Communication with Friends and Fami ly Not on file 09/20/2021 Financial Resource Strain Answer Date R ecorded Difficulty of Paying Living Expenses Not on file 09/20/2021 Difficulty of Paying Living Expenses Not on file 09/20/2021 Sex and Gender Information Value Date Recorded Sex Assigned at Not on file Gender Identity Not on file Sexual Orientation Not on file Obstetrics History Last Filed Vital Signs Vital Sign Reading Time Taken Comments Blood Pressure 143/81 02/23/2024 12:30 PM CDT Pulse 67 02/23/2024 12:30 PM CDT Temperature 36.1 ??C (97 ??F) 02/23/2024 11:24 AM CDT Respiratory Rate 12 02/23/2024 12:30 PM CDT Oxygen Saturation 96% 02/23/2024 12:30 PM CDT Inhaled Oxygen Concentration - - Weight 105.2 kg (232 lb) 02/23/2024 8:44 AM CDT Height 167.6 cm (5' 6) 02/23/2024 8:44 AM CDT Body Mass Index 37.45 02/23/2024 8:44 AM CDT Plan of Treatment Health Maintenance Due Date Last Done Comments Tdap 01/21/2000 Depression screening for age 12+ 2001 HIV for age 15-65 01/21/2004 BMI (ht and wt on same day) for age 18+ 2007 Hepatitis C screening for ag e 18-79 2007 Tetanus booster 2009 Lipids for age 35-44 01/21/2024 COVID-19 vaccine series (2023- season) 2024 Influenza for age 9-49 05/21/2024 Pneumococcal series for age 6-64 Aged Out No longer eligible based on patient's age to complete this topic Advance Directives * Full Code (Latest Code Status on File) Date Activated Date Inactivated Comments 02/23/2024 8:18 AM 02/23/2024 3:25 PM Question Answer Comments Code Status Discussion: Unable to Assess Preferences, Provider to review later Care Teams Associate Professor Of Violin Relationship Specialty Start Date End Date Pcp, No . PCP - General 02/05/11
--- OUTSIDE RECORDS SUMMARY | 2024-07-24 17:06 | XMS_ITS | Data Portability ---
Author Organization [place] [facility] Address [address] [facility] [address] [place] [address] Assessment No assessment recorded. Plan of Treatment Reminders Order Date Submit Date Provider Last Modified By Organization Details Last Modified Time Details Appointments None recorded. Lab urinalysis, dipstick 2023 024 [email or web address] [id number] [facility], [address], [place], [address], 11:58:37 Referral None recorded. Procedures None recorded. Surgeries None recorded. Imaging None recorded. Medication Orders hydromorpho ne 2 mg tablet 2023 [id number], [address] [place], [place], [phone], 12:05:42 Patient TargetsNo targets recorded. Patient Instructions Encounter Date Encounter Id Patient Instructions Last Modified By Organization Details Last Modified Time 02/18/2024 [id number] will set up for cysto right ureteral catheter right ESWL next week jeanettew or avelino. [email or web address] Not available 02/18/2024 12:01:19 Reason for Referral None Reported. Results Created Date Observation Date Name Description Value Unit Range Abnormal Flag Note LastModifiedBy Organization Detail LastModifiedTime 02/18/20 24 02/18/2024 urina lysis , dipst ick BLOOD Large (250 RBC/uL ) Not Available [facility] [address], [place], [address], 02/17/2024 17:43:19 02/18/20 24 02/18/2024 urina lysis , dipst ick KETONES Trace (5 mg/dL) Not Available [facility] [address], [place], [address], 02/17/2024 17:43:19 02/18/20 24 02/18/2024 urina lysis , dipst ick PROTEIN Trace (10 mg/dL) Not Available [facility] [address], [place], [address], 02/17/2024 17:43:19 02/18/20 24 02/18/2024 XR, kidne y + urete r + bladd er EXAM: XR, KIDNEY + URETER + BLADDE R [facility] DATE: 024 INDICA TION: [...] Aubrey Sandy MD on 2023 at 11:18 [email or web address] [facility] [address] [facility] [address], [place], [address], 02/18/2024 13:21:53 Result Notes Documentation Provider Name and Address Organization Details Recorded Time Xr, Kidney + Ureter + Bladder : EXAM: XR, KIDNEY + URETER + BLADDER [facility] DATE: 02/18/2024 INDICATION: Calculus of kidney COMPARISON: [...] on 02/18/2024 at 11:18 Vern Ackerman MD [address] [place] [address],[address] [place] [address], [phone], [facility] 02/18/2024 13:21:53 Problems Name Problem SNOMED Code Status Onset Date Resolution Date Notes Provider Name and Address Organization Details Recorded Time Kidney stone 83673417 Active 024 Vern Ackerman MD [address] [place] [address],[address], [place], [address] , [facility] 02/18/2024 12:02:11 Problem Notes None recorded. Procedures Surgical History None recorded. Imaging Results Imaging Date Name Status LastModified by Organiz ation Details LastModified Time 02/18/2024 XR, kidney + ureter + bladder completed [id number] [facility] [address] [facility] [address], [place], [address], 02/18/2024 13:21:53 Procedure Notes None recorded. Medical Equipment None Reported. Allergies Allergen ID Allergen Name Allergen Category Reaction Reaction Severity Criticality Documentation Date Start Date Code Code System Note Provider Name and Address Organization Details Recorded Time 462565 Medicinal product containin g penicilli n and acting as antibacte rial agent (product) medicatio n Not available Not available Not available 02/18/2024 48636 05 SNOMED Vern Ackerman MD [address] [place] [address],[address] [place] [address], [phone], [facility] 4 11:47:41 202617 acetamino phen / oxycodone medicatio n Not available Not available Not available 02/18/2024 36109 3 RxNorm Vern Ackerman MD [address] [place] [address],[address] [place] [address], [phone], [facility] 4 11:47:48 Medications Name Sig Start Date [...] Updated DateTime 02/18/2024 167.64 cm 35.5 kg/m2 71599.32 g Vern Ackerman MD [address] [place] [address],[address] [phone] [place] [address] Urology 02/18/2024 11:47:20 Social History Question Answer Notes LastModified by Organizat ion Details LastModified Time Tobacco Smoking Status Current Every Day Smoker Vern Ackerman MD [address] [place] [address],[address], [phone] [place] [address] Urology 02/18/2024 11:49:54 What Is Your Level Of Alcohol Consumption? None [email or web address] Information not available 02/18/2024 What Is Your Level Of Caffeine Consumption? Moderate [email or web address] Information not available 02/18/2024 What Was The Date Of Your Most Recent Tobacco Screening? 02/18/2024 [email or web address] Information not available 02/18/2024 Sex: Unknown Functional Status None recorded. Mental Status None recorded. Family History Nothing Reported. Medical History Condition Response Sexually Transmitted Infection N Diabetes N Other N Bleeding Disorder N High Blood Pressure N Kidney Stones Y High Cholesterol N GERD/Acid Reflux N Heart Disease N Cancer N Lung Disease N Depression N Past Encounters Encounter ID Performer Location Encounter Start Date Encounter Closed Date Diagnosis/Indication Diagnosis SNOMED-CT Code Diagnosis ICD10 Code [id number] Vern Ackerman MD [facility] [address] [place] [phone] 02/18/2024 10:14:40 02/21/2024 12:15:01 Kidney stone 03520243 N20.0 Health Concerns Section Related Observation LastModified by Organization Detai ls LastModified Time None Recorded Concern Status LastModified by Organization Details LastModified Time None Recorded Advance Directives Directive None Recorded Payers Encounter Date Sequence Insurance Name Policy Number Policy Carter Covered Member ID Carter Member ID Guarantor Name 02/18/2024 1 [place] Denis Seth [id number] Denis Seth Notes Date Note Type Note [...] mother had stones. Vern Ackerman MD [address] [facility],[address], [place], [address], [facility] 02/18/2024 13:25:41
[2024-07-24] MEDS: HYDROmorphone 0.5 mg/0.5 ml inj IVP (18:04)
== END 2024-07-24 18:19 | disposition home or self-care (01) ==
PROVIDERS: Emergency Provider Emergency Medicine; PCP Family Medicine
DX: R10.31 Right lower quadrant pain (principal); K76.0 Fatty (change of) liver, not elsewhere classified; K80.20 Calculus of gallbladder without cholecystitis without obstruction
CPT/HCPCS: 36415; 74177; 80053; 81001; 83690; 85025; 96374; 96375; 99283; 99284; 99285; J1171; J1885; J2405; Q9967

== ENCOUNTER 2024-07-25 16:35 | Emergency (ER) | payer MEDICAID, SELFPAY ==
[2024-07-25 16:41] VITALS: BP 122/83; PULSE 65; RESP 16; TEMP 36.8; O2SAT 96; BMI 37.6
--- NOTE | 2024-07-25 16:59 | CRLHL7_ITS ---
For Patients: As a result of the Century Cures Act, medical imaging exams and procedure reports are released immediately into your electronic medical record. You may view this report before your referring provider. If you have questions, please contact your health care provider. CLINICAL HISTORY: Right upper quadrant pain FINDINGS: Increased echogenicity of the liver. Liver is enlarged measuring 18.2 cm. There is a normal appearance of the hepatic IVC and proximal abdominal aorta. There is no evidence of ascites. Contracted gallbladder with stones. Negative sonographic Davis`s sign the gallbladder wall measures 2 mm in thickness. The common bile duct is of normal size and measures 3 mm in diameter at the level of the guanako hepatis. The visualized portions of the pancreas appears normal. Right kidney is unremarkable. IMPRESSION: 1. Contracted gallbladder with cholelithiasis. Negative sonographic Davis`s sign. Normal gallbladder wall thickness 2. Hepatomegaly with hepatic steatosis. Dictated by Krystle Vides MD @ 07/25/2024 6:34:32 PM (Electronically Signed)
--- OUTSIDE RECORDS SUMMARY | 2024-07-25 17:03 | XMS_ITS | Clinical Summary ---
Author Organization [facility] Address [place], [place] [address] Care Team Providers Care Facilities Management Executive Name Role Phone Pcp, No Primary Care [...] Preferences, Provider to review later Care Teams Facilities Management Executive Relationship Specialty Start Date End Date Pcp, No . PCP - General 02/05/11
--- NOTE | 2024-07-25 17:09 | ED.ABDPAIN ---
HPI - Abdominal Pain General Date Seen: 07/25/24 Chief Complaint: Abdominal Pain Stated Complaint: Lower R abdominal pain, nausea Time Seen by Provider: 07/25/24 16:42 Source: patient Mode of arrival: ambulatory Limitations: no limitations History of Present Illness HPI narrative: Patient is a 34-year-old male presenting for right-sided abdominal pain. Symptoms started this past Wednesday and got acutely worse yesterday. He came into emergency department that time and lab work and CT scan was done. The CT scan showed some fatty liver disease any is slightly elevated liver enzymes but no other acute abnormalities were seen. He was sent home with some pain medication and nausea medicine. He was told to return to the emergency department in the next 12-24 hours if symptoms are not improving. He states today the abdomen pain has improved a lot but he still having some nausea. Does not taking any other medication prescribed to him yet. Has no previous abdominal surgeries. Has never had pain like this before he states. No other concerns noted. Denies fevers, chills, chest pain, shortness of breath, constipation, weakness, numbness. Was having some loose stools earlier in the week that have since improved but states they are smaller now as he has not been eating much due to his symptoms. Related Data Previous Rx's ?Medication ?Instructions ?Recorded hydromorphone 2 mg tablet 2 mg PO Q6H PRN pain #7 tabs 07/24/24 (Dilaudid) ondansetron HCl 4 mg tablet 4 mg PO Q8H #10 tabs 07/24/24 Allergies Allergy/AdvReac Type Severity Reaction Status Date / Time oxycodone (From Percocet) AdvReac Verified 07/24/24 16:39 Penicillins AdvReac Verified 07/24/24 16:39 Review of Systems Status of ROS Reports: 10 or more systems reviewed and unremarkable except as noted in History and below [facility] PFS Surgical History History of surgery on lower extremity ?Z98.890 - Other specified postprocedural states (ICD-10) Social History What is your current living situation?: I presently have a place to live Problems where you live: no known problems In the past 12 months, utilities in danger of being shut off: no In past 12 months, lack of transportation kept you from medical appts, meetings, work, or getting things needed for daily living: no In the past 12 mos, have been you worried that your food would run out before you had money to buy more?: never true In the past 12 mos, the food you bought just didn't last and you didn't have money to buy more?: never true Smoking Status: Current every day smoker What tobacco products do you use: cigarettes Smoking packs per day: 1 Smoking cigarettes per day: 20.0 Do you use any of these nicotine containing products: None Second hand tobacco smoke exposure: No How often do you have a drink containing alcohol: never How often do you have six or more drinks on one occasion: Never AUDIT-C Alcohol total score: 0 Non-prescribed substance use: denies use How often does anyone, including family, friends and others, physically hurt you: never How often does anyone, including family, friends and others, insult or talk down to you: never How often does anyone, including family, friends and others, threaten you with harm: never How often does anyone, including family, friends and others, scream or curse at you: never Little interest or pleasure in doing things: nearly every day Feeling down, depressed, or hopeless: several days service: No Exam Narrative: Exam Narrative: Const: Well-nourished, Well-developed, in mild distress Eyes: PERRL, no conjunctival injection, and symmetrical lids HENT: Atraumatic external nose and ears. Moist mucous membranes. Neck: Symmetric, trachea midline, No thyromegaly. CVS: RRR, No murmurs or gallops. Peripheral pulses 2+ and equal in all extremities RESP: Unlabored respiratory effort. Clear to auscultation bilaterally. GI: Tenderness to right abdomen worse in the right lower quadrant. Nondistended, No rebound or guarding. MSK:Extremities w/o deformity, Normal Active ROM Skin: Warm, Dry. No rashes or lesions. Neuro: Normal Muscle tone, No focal neurological deficits. Psych: Awake, Alert, & Oriented x3. Appropriate mood and affect. Const: Vital Signs, click to edit/add: Vital Signs - 24 hr 07/25/24 16:41 Temperature 98.2 F Pulse Rate [Pulse Oximeter] 65 Respiratory Rate 16 Blood Pressure [Ri ght Upper Arm] 122/83 Pulse Oximetry 96 Oxygen Delivery Me thod Room Air Nasal Can nula Course Vital Signs Vital signs: Initial Vital Signs Temperature 98.2 F 07/25/24 16:41 Temperature Source Temporal Artery Scan 07/25/24 16:41 Pulse Rate 65 07/25/24 16:41 Respiratory Rate 16 07/25/24 16:41 Blood Pressure 122/83 07/25/24 16:41 Blood Pressure Mean 96 07/25/24 16:41 Blood Pressure Position Sitting 07/25/24 16:41 Pulse Oximetry 96 07/25/24 16:41 Oxygen Delivery Method Room Air, Nasal Cannula 07/25/24 16:41 Vital Signs Temperature 98.2 F 07/25/24 16:41 Pulse Rate 65 07/25/24 16:41 Respiratory Rate 16 07/25/24 16:41 Blood Pressure 122/83 07/25/24 16:41 Pulse Oximetry 96 07/25/24 16:41 Oxygen Delivery Method Room Air, Nasal Cannula 07/25/24 16:41 Temperature 98.2 F 07/25/24 16:41 Pulse Rate 65 07/25/24 16:41 Respiratory Rate 16 07/25/24 16:41 Blood Pressure 122/83 07/25/24 16:41 Pulse Oximetry 96 07/25/24 16:41 Oxygen Delivery Method Room Air, Nasal Cannula 07/25/24 16:41 MDM - Abdominal Pain MDM Narrative Medical decision making narrative: Patient is a 34-year-old male presenting for abdominal pain. Differential this time includes appendicitis, SBO, gallbladder liver disease, colitis. Seems unlikely to be diverticulitis, gastritis, pancreatitis considering the location. He just had CT scan yesterday that only showed some fatty liver disease and no other acute abnormalities. Concerning symptoms are improving repeat imaging seems unnecessary. Per the provider note from yesterday though he was told to come back if symptoms are not improving. Even other are improving I will repeat CBC, CMP, lipase and do a right upper quadrant ultrasound. Lab work shows no concerning abnormalities. His LFTs have improved slightly but even now the ALT is only mildly elevated. Ultrasound was done showing no signs of cholecystitis. There is cholelithiasis but this was already known. Same with a fatty liver disease. This point he is doing well and safe for discharge. He is agreeable to this plan. Lab Data Labs: Lab Results 07/25/24 Range/Units 17:09 WBC 9.86 (4.50-11.00) K/uL RBC 5.14 (4.30-5.90) m/uL Hgb 16.2 (13.5-17.5) gm/dL Hct 48.0 (37.0-53.0) % MCV 93 (80-100) fL MCH 32 (26-34) pg MCHC 34 (32-36) gm/dL RDW Coeff of [place] 12.2 (11.5-15.5) % Plt Count 260 (140-440) K/uL Neut % (Auto) 45.7 (42.0-72.0) % Lymph % (Auto) 40.5 (20-44) % Stark % (Auto) 7.8 (0.0-11.0) % Eos % (Auto) 5.2 (0.0-7.0) % Baso % (Auto) 0.7 (0.0-3.0) % Neut # (Auto) 4.51 (1.7-7.0) K/uL Lymph # (Auto) 3.99 H (0.90-2.90) K/uL Stark # (Auto) 0.80 (0.00-0.90) K/UL Eos # (Auto) 0.51 H (0.00-0.50) K/uL Baso # (Auto) 0.07 (0.00-0.30) K/uL Abs Immat Gran (auto) 0.01 (0.00-0.30) K/uL Imm/Tot Granulo (auto) 0.1 % Sodium 137 (135-149) mmol/L Potassium 4.2 (3.6-5.1) mmol/L Chloride 103 (96-114) mmol/L Carbon Dioxide 27 (20-32) mmol/L Anion Gap 7 (7-15) mEq/L BUN 16 (5-24) mg/dL Creatinine 1.0 (0.5-1.5) mg/dL Estimated Creat Clear 96.40 Estimated GFR 101 ml/min Glucose 117 H (60-115) mg/dL Calcium 9.4 (8.4-10.6) mg/dL Total Bilirubin 0.2 (0.1-1.5) mg/dL AST 34 (12-35) U/L ALT 57 H (4-50) U/L Alkaline Phosphatase 70 (40-150) U/L Total Protein 7.5 (6.0-8.3) g/dL Albumin 4.5 (3.3-5.0) g/dL Lipase 88 (23-300) U/L Imaging Data US - abdomen: Attestation: I have reviewed the pertinent imaging results. Radiologist's impression: 1. Contracted gallbladder with cholelithiasis. Negative sonographic Davis`s sign. Normal gallbladder wall thickness 2. Hepatomegaly with hepatic steatosis. Dictated by Krystle Vides MD @ 07/25/2024 6:34:32 PM Discharge Plan Discharge Clinical Impression: Fatty liver Abdominal pain Qualifiers: Abdominal location: right lower quadrant Qualified Code(s): R10.31 - Right lower quadrant pain Instructions: Non-Alcoholic Fatty Liver Disease (ED) Additional Instructions: Follow-up with the primary care provider if symptoms persist. Return to the emergency department for any new or worsening symptoms. Take your previously prescribed medications for your pain and nausea. Prescriptions: No Action ondansetron HCl 4 mg tablet 4 mg PO Q8H Qty: 10 0RF hydromorphone [Dilaudid] 2 mg tablet 2 mg PO Q6H PRN (Reason: pain) Qty: 7 0RF Follow Up/Referrals: Chavo Noonan MD [Primary Care Provider] - Stand Alone Forms: [employer] Info Instructions
[2024-07-25 17:15] LABS: Basophils Absolute Auto 0.07 K/uL (0.00-0.30); Basophils Percent Auto 0.7 % (0.0-3.0); Eosinophils Absolute Auto 0.51 K/uL (0.00-0.50); Eosinophils Percent Auto 5.2 % (0.0-7.0); Hemoglobin* 16.2 gm/dL (13.5-17.5); Immature Granulocytes Abs Auto 0.01 K/uL (0.00-0.30); Immature Granulocytes Pct Auto 0.1 %; Lymphocytes Absolute Auto 3.99 K/uL (0.90-2.90); Lymphocytes Percent Auto 40.5 % (20-44); Mean Corpuscular HGB Conc 34 gm/dL (32-36); Mean Corpuscular Hemoglobin 32 pg (26-34); Mean Corpuscular Volume 93 fL (80-100); Monocytes Percent Auto 7.8 % (0.0-11.0); Neutrophils Absolute Auto 4.51 K/uL (1.7-7.0); Neutrophils Percent Auto 45.7 % (42.0-72.0); Platelet Count* 260 K/uL (140-440); RDW Coefficient of Variation % 12.2 % (11.5-15.5); Red Blood Count 5.14 m/uL (4.30-5.90); White Blood Count* 9.86 K/uL (4.50-11.00)
[2024-07-25 17:23] LABS: Slide Review Reflex No
[2024-07-25 17:29] LABS: Albumin* 4.5 g/dL (3.3-5.0); Chloride* 103 mmol/L (96-114); Sodium* 137 mmol/L (135-149)
[2024-07-25 17:30] LABS: Potassium* 4.2 mmol/L (3.6-5.1)
[2024-07-25 17:32] LABS: Alkaline Phosphatase* 70 U/L (40-150); Anion Gap 7 mEq/L (7-15); Aspartate Amino Transferase* 34 U/L (12-35); Bilirubin Total* 0.2 mg/dL (0.1-1.5); Blood Urea Nitrogen* 16 mg/dL (5-24); Carbon Dioxide* 27 mmol/L (20-32); Estimated Glomerular Filt Rate 101 ml/min; Lipase* 88 U/L (23-300); Total Protein* 7.5 g/dL (6.0-8.3)
[2024-07-25 17:33] LABS: Alanine Aminotransferase* 57 U/L (4-50); Calcium* 9.4 mg/dL (8.4-10.6); Glucose* 117 mg/dL (60-115)
== END 2024-07-25 19:05 | disposition home or self-care (01) ==
LOC: ED 17:01
PROVIDERS: Emergency Provider Student in an Organized Health Care Education/Training Program; PCP Family Medicine
DX: R10.31 Right lower quadrant pain (principal); K76.0 Fatty (change of) liver, not elsewhere classified
CPT/HCPCS: 36415; 76705; 80053; 83690; 85025; 99283